=== PATIENT | male | born 1970 | race Caucasian/White ===

== ENCOUNTER 2017-01-11 19:37 | Emergency (ER) | payer SELFPAY ==
[2017-01-11] MEDS ORDERED: ACETAMINOPHEN 500 MG TABLET PO ONE (20:02)
--- NOTE | 2017-01-11 20:04 | Emergency Department Record ---
History of Present Illness - General Chief complaint: Swelling of legs Stated complaint: SWELLING OF LEGS Time Seen by Provider: 01/11/17 19:57 Source: Patient Mode of Arrival: Ambulatory Limitations: No limitations - History of Present Illness Initial comments: 46 yo male presents to ED stating "I think I have cellulitis to the left lower extremity again". Patient reports that his symptoms began this morning with a pain and "pins and needles" sensation to the left LE similar to previous episodes. Patient denies history of DM, but reports 2-3 previous episodes of cellulitis. Patient als reports fatigue and myalagias today as well. MD Complaint: Extremity pain Onset/Timin -: Week(s) Location: Left, Foot History of Same: Yes Radiation: Proximal Severity scale (1-10): 9 Consistency: Getting worse Improves with: Nothing Worsens with: Walking, Weight bearing Associated Symptoms: Fever, Other - Related Data Home Medications Medication Instructions Recorded Confirmed Last Taken Sertraline HCl [Zoloft] 100 mg PO BID 08/16/15 01/11/17 1 Day Ago ~08/15/15 Trazodone HCl 100 mg PO QPM 08/16/15 01/11/17 1 Day Ago ~08/15/15 Previous Rx's Medication Instructions Recorded Clindamycin HCl 300 mg PO QID #40 capsule 01/11/17 Allergies Allergy/AdvReac Type Severity Reaction Status Date / Time Penicillins Allergy HIVES Verified 08/16/15 16:04 Sulfa (Sulfonamide Allergy SWELLING Verified 08/16/15 16:04 Antibiotics) OF THE FACE Travel Screening - Travel/Exposure Within Last 30 Days Have you traveled within the last 30 days?: No - Travel/Exposure Within Last Year Have you traveled outside the [place] in the last year?: No - Additonal Travel Details Have you been exposed to anyone with a communicable illness?: No - Travel Symptoms Symptom Screening: None Review of Systems Constitutional: Reports: Chills, Fever, Malaise, Weakness (generalized). Denies : Night sweats Eyes: Denies: Eye discharge, Eye pain ENT: Denies: Congestion, Ear pain, Epistaxis Respiratory: Denies: Cough, Dyspnea Cardiovascular: Denies: Chest pain, Dyspnea on exertion Endocrine: Denies: Fatigue, Heat or cold intolerance Gastrointestinal: Denies: Abdominal pain, Nausea, Vomiting Genitourinary: Denies: Incontinence, Retention Musculoskeletal: Reports: Arthralgia, Myalgia. Denies: Back pain, Gout, Joint swelling Skin: Denies: Bruising, Change in color Neurological: Denies: Abnormal gait, Confusion, Headache, Seizure Psychiatric: Denies: Anxiety Hematological/Lymphatic: Denies: Anemia, Blood Clots Past Medical History - SOCIAL HISTORY Smoking Status: Never smoker Alcohol Use: None Drug Use: None - RESPIRATORY Hx Bronchitis: Yes Hx Sleep Apnea: Yes (being tested) - CARDIOVASCULAR Hx Cardio Disorders: No - NEURO Hx Neuro Disorders: No - GI Hx GI Disorders: No - Hx Genitourinary Disorders: No - ENDOCRINE Hx Diabetes: No Hx Thyroid Disease: No - PSYCH Hx Anxiety: Yes Hx Depression: Yes - HEMATOLOGY/ONCOLOGY Hx Hematology/Oncology Disorders: No Family Medical History Any Significant Family History?: No Hx HTN: Father, Mother, Brother/Sister, Grandparents Physical Exam - General General Appearance: Alert, Oriented x3, Cooperative, No acute distress Limitations: No limitations - Head Head exam: Atraumatic, Normocephalic, Normal inspection Head exam detail: negative: Abrasion, Contusion, Beaulieu's sign, General tenderness, Hematoma, Laceration - Eye Eye exam: Normal appearance. negative: Conjunctival injection, Periorbital swelling, Periorbital tenderness, Scleral icterus - ENT Ear exam: negative: Auricular hematoma, Auricular trauma Nasal Exam: negative: Active bleeding, Discharge, Dried blood, Foreign body Mouth exam: negative: Drooling, Laceration, Muffled voice, Tongue elevation - Neck Neck exam: Normal inspection. negative: Meningismus, Tenderness - Respiratory Respiratory exam: Normal lung sounds bilaterally. negative: Rales, Respiratory distress, Rhonchi, Stridor - Cardiovascular Cardiovascular Exam: Normal rhythm, Normal heart sounds, Tachycardia - GI/Abdominal GI/Abdominal exam: Soft. negative: Rebound, Rigid, Tenderness - Rectal Rectal exam: Deferred - exam: Deferred - Extremities Extremities exam: Other (warmth to the lower extremities bilaterally, no erythema or crepitation is present on examination). negative: Calf tenderness, Pedal edema, Tenderness - Back Back exam: Denies: CVA tenderness (R), CVA tenderness (L) - Neurological Neurological exam: Alert, Normal gait, Oriented X3 - Psychiatric Psychiatric exam: Normal affect, Normal mood - Skin Skin exam: Normal color. negative: Abrasion Type of lesion: negative: abrasion Course Vital Signs 01/11/17 19:39 Temperature 100.5 F H Pulse Rate 120 H Respiratory 26 H Rate Blood Pressure 119/87 Pulse Ox 93 L - Reevaluation(s) Reevaluation #1: 01/11/17 21:07 Labs reviewed, WBC 19.5 with 88% neutrophils, labs are otherwise grossly unremarkable for an acute process. CXR: No acute process Patient was updated on all results, reports improvement in his symptoms (pulse down to 99 from 120, temp remains at 100.3). Will initiate treatment with Clindamycin followed by outpatient treatment for presumed cellulitis. Patient agrees with plan as discussed. Medical Decision Making - Lab Data Result diagrams: 01/11/17 20:30 01/11/17 20:30 Disposition Disposition: Discharge Clinical Impression: Cellulitis of lower leg Disposition: Home, Self-Care Condition: (2) Stable Instructions: Cellulitis (ED) Additional Instructions: Return to ED if symptoms worsen or if you have any concerns. Clindamycin as directed. Follow-up with your family doctor in 1-3 days as directed. Prescriptions: Clindamycin HCl 300 mg PO QID #40 capsule Forms: Patient Portal Access Time of Disposition: 21:11
[2017-01-11] MEDS ORDERED: 0.9 % SODIUM CHLORIDE 1000ML 1,000 ML IV SCH (20:15)
[2017-01-11 20:35] LABS: BASO % 0.1 % (0-6); EOS % 0.2 % (0-6); HEMATOCRIT 44.3 % (42.0-52.0); HEMOGLOBIN 14.7 gm/dl (14.0-18.0); LYMPH % 2.8 % (16-45); MEAN CELL VOLUME 85.9 fl (81-97); MEAN CORPUSCULAR HEMOGLOBIN 28.5 pg (27-33); MEAN CORPUSCULAR HGB CONC 33.2 g/dl (32-36); MEAN PLATELET VOLUME 8.9 fl (7.4-10.4); MONO % 6.6 % (0-9); PLATELET COUNT 226 K/uL (130-400); RED BLOOD COUNT 5.16 M/uL (4.40-5.70); RED CELL DISTRIBUTION WIDTH 13.6 % (11.5-14.5); WHITE BLOOD COUNT W/O DIFF 19.5 K/uL (4.2-12.2)
[2017-01-11 20:46] LABS: LACTIC ACID 1.1 mmol/L (0.7-2.1)
[2017-01-11 21:00] LABS: BLOOD UREA NITROGEN 12 mg/dL (9-20); CREATININE 0.8 mg/dL (0.66-1.25); EST GLOMERULAR FILTRATION RATE > 60 ml/min; GLUCOSE,RANDOM 104 mg/dL (70-110)
[2017-01-11 21:01] LABS: ALB/GLOB RATIO 1.3 (1.1-1.8); ALBUMIN 4.4 gm/dL (3.5-5.0); ALKALINE PHOSPHATASE 68 U/L (38-126); ALT/SGPT 29 U/L (21-72); AST/SGOT 18 U/L (17-59); TOTAL PROTEIN 7.7 gm/dL (6.3-8.2)
[2017-01-11] MEDS ORDERED: CLINDAMYCIN 900 MG/50 ML IVPB SCH (21:15)
[2017-01-11] MEDS ORDERED: D5W IVPB SCH (21:15)
[2017-01-11] MEDS ORDERED: CLINDAMYCIN 600MG/50ML PREMIX 600 MG/50 ML BAG IVPB ONE (21:23)
== END 2017-01-11 21:50 | disposition home or self-care (01) ==
LOC: ER 19:37
DX: L03.116 Cellulitis of left lower limb (principal)
CPT/HCPCS: 71020; 80053; 83605; 85027; 96374; 99284; J7030

== ENCOUNTER 2017-04-19 19:21 | Emergency (ER) | payer MEDICAID ==
[2017-04-19] MEDS ORDERED: CLINDAMYCIN 600MG/4ML VIAL 600 MG in 0.9 % SODIUM CHLORIDE 100ML 100 ML IV ONE (19:28)
--- NOTE | 2017-04-19 19:34 | Emergency Department Record ---
History of Present Illness - General Chief complaint: Rash Stated complaint: RASH ON RT LEG Time Seen by Provider: 04/19/17 19:27 Source: Patient, Family Mode of Arrival: Ambulatory Limitations: No limitations - History of Present Illness Initial comments: 47 yo male presents with redness to the lower leg on the right that started today. He has had cellulitis 7 times in the past. No fevers or chills. No nausea or vomiting. He has warmth and redness. No pus or signs of abscesses. He is not a diabetic. He reports a good response to Clindamycin in the past. MD complaint: Rash -: Hour(s) Location: RLE Severity: Moderate Quality: Aching Consistency: Constant Improves with: None Worsens with: None Context: Other (Hx of same in the past) Associated symptoms: Denies other symptoms Treatments Prior to Arrival: None - Related Data Previous Rx's Medication Instructions Recorded Clindamycin HCl 300 mg PO QID #28 capsule 04/19/17 Sertraline HCl [Zoloft] 100 mg PO BID #60 tablet 04/19/17 Trazodone HCl 100 mg PO QPM #30 tablet 04/19/17 Allergies Allergy/AdvReac Type Severity Reaction Status Date / Time Penicillins Allergy HIVES Verified 08/16/15 16:04 Sulfa (Sulfonamide Allergy SWELLING Verified 08/16/15 16:04 Antibiotics) OF THE FACE Review of Systems Constitutional: Denies: Chills, Fever, Malaise, Weakness Eyes: Denies: Eye discharge ENT: Denies: Congestion, Throat pain Respiratory: Denies: Cough, Dyspnea, Hemoptysis, Stridor, Wheezes Cardiovascular: Denies: Chest pain, Syncope Endocrine: Denies: Fatigue Gastrointestinal: Denies: Abdominal pain, Diarrhea, Nausea, Vomiting Genitourinary: Denies: Dysuria, Frequency, Hematuria Musculoskeletal: Denies: Arthralgia, Back pain, Joint swelling, Myalgia Skin: Reports: As per HPI, Change in color, Rash Neurological: Denies: Headache, Vertigo, Weakness Psychiatric: Denies: Anxiety Hematological/Lymphatic: Denies: Blood Clots, Easy bleeding, Easy bruising, Swollen glands Past Medical History - SOCIAL HISTORY Smoking Status: Never smoker Drug Use: None - RESPIRATORY Hx Bronchitis: Yes Hx Sleep Apnea: Yes (being tested) - CARDIOVASCULAR Hx Cardio Disorders: No - NEURO Hx Neuro Disorders: No - GI Hx GI Disorders: No - Hx Genitourinary Disorders: No - ENDOCRINE Hx Diabetes: No Hx Thyroid Disease: No - PSYCH Hx Anxiety: Yes Hx Depression: Yes - HEMATOLOGY/ONCOLOGY Hx Hematology/Oncology Disorders: No Family Medical History Hx HTN: Father, Mother, Brother/Sister, Grandparents Physical Exam - General General Appearance: Alert, Oriented x3, Cooperative, No acute distress Limitations: No limitations - Head Head exam: Normal inspection - Eye Eye exam: Normal appearance. negative: Conjunctival injection, Periorbital swelling - ENT ENT exam: Normal exam Ear exam: Normal external inspection Nasal Exam: Normal inspection Mouth exam: Normal external inspection - Neck Neck exam: Normal inspection, Full ROM. negative: Tenderness - Respiratory Respiratory exam: Normal lung sounds bilaterally. negative: Respiratory distress - Cardiovascular Cardiovascular Exam: Regular rate, Normal rhythm, Normal heart sounds Peripheral Pulses: 2+: Radial (R) - Rectal Rectal exam: Deferred - exam: Deferred - Extremities Extremities exam: Full ROM, Normal capillary refill. negative: Normal inspection, Pedal edema, Tenderness Image of Full Body: 1 - erythema, soft, no blisters or abscesses, no weeping or blisters - Back Back exam: Reports: Normal inspection. Denies: CVA tenderness (R), CVA tenderness (L) - Neurological Neurological exam: Alert, Normal gait, Oriented X3, Reflexes normal - Psychiatric Psychiatric exam: Normal affect, Normal mood - Skin Skin exam: Erythema Course - Reevaluation(s) Reevaluation #1: No acute changes on the CBC or BMP DC with 2am and 8am dose of Clindamycin 04/19/17 20:02 Medical Decision Making - Lab Data Result diagrams: 04/19/17 19:35 04/19/17 19:35 Disposition Disposition: Discharge Clinical Impression: Cellulitis Qualifiers: Site of cellulitis: extremity Site of cellulitis of extremity: lower extremity Laterality: right Qualified Code(s): L03.115 - Cellulitis of right lower limb Disposition: Home, Self-Care Condition: (1) Good Instructions: Cellulitis (ED) Additional Instructions: Elevate the leg as much as possible Return if worse, fever, blisters or pus develop Take the Clindamycin every 6 hours Recheck in one day if not improving but sooner if worse Prescriptions: Clindamycin HCl 300 mg PO QID #28 capsule Sertraline HCl [Zoloft] 100 mg PO BID #60 tablet Trazodone HCl 100 mg PO QPM #30 tablet Forms: Patient Portal Access Time of Disposition: 20:02 Quality - Quality Measures Quality Measures: N/A - Blood Pressure Screening Does Patient Have Any of the Following: No Blood Pressure Classification: Hypertensive Reading Systolic Measurement: 140 Diastolic Measurement: 91 Screening for High Blood Pressure: < Pre-Hypertensive BP, F/U Documented > [ G8950] Pre-Hypertensive Follow-up Interventions: Referral to alternative/primary care provider.
[2017-04-19] MEDS ORDERED: CLINDAMYCIN 150 MG CAP PO ONE ×2 (19:40→20:28)
[2017-04-19 19:42] LABS: HEMATOCRIT 43.1 % (42.0-52.0); HEMOGLOBIN 14.9 gm/dl (14.0-18.0); MEAN CELL VOLUME 85.9 fl (81-97); MEAN CORPUSCULAR HEMOGLOBIN 29.7 pg (27-33); MEAN CORPUSCULAR HGB CONC 34.6 g/dl (32-36); PLATELET COUNT 205 K/uL (130-400); RED BLOOD COUNT 5.02 M/uL (4.40-5.70); RED CELL DISTRIBUTION WIDTH 13.6 % (11.5-14.5); WHITE BLOOD COUNT W/O DIFF 11.3 K/uL (4.2-12.2)
[2017-04-19 19:52] LABS: PLATELET ESTIMATE NORMAL (NORMAL)
[2017-04-19 19:53] LABS: ANION GAP 8.4 (7-16); BLOOD UREA NITROGEN 12 mg/dL (9-20); CARBON DIOXIDE 26.6 mmol/L (22-30); CREATININE 0.9 mg/dL (0.66-1.25); EST GLOMERULAR FILTRATION RATE > 60 ml/min; GLUCOSE,RANDOM 82 mg/dL (70-110)
== END 2017-04-19 20:55 | disposition home or self-care (01) ==
LOC: ER 19:21
DX: L03.115 Cellulitis of right lower limb (principal)
CPT/HCPCS: 80048; 85027; 96374; 99284

== ENCOUNTER 2017-06-16 12:24 | Emergency (ER) | payer MEDICAID ==
--- NOTE | 2017-06-16 12:41 | Emergency Department Record ---
History of Present Illness - General Chief Complaint: Back Pain/Injury Stated Complaint: LOW BACK PAIN Time Seen by Provider: 06/16/17 12:33 Source: Patient Mode of Arrival: Ambulatory Limitations: No limitations - History of Present Illness Initial Comments: The patient was lifting a heavy object yesterday and felt a "pop" in his back. He had no problems after but only very mild pain and went to bed with no issues. This AM he has developed significant pain in the low back. The pain is sharp and stabbing and is MUCH worse with any movement or bending. He denies any radiation of the pain down the legs or any leg numbness, tingling, weakness , or any bowel or bladder issues. The patient has had back surgery in the past. He is able to walk with pain. Onset/Timin -: Days(s) Similar Symptoms Previously: No Place: Home Radiation: None Severity: Severe Severity scale (1-10): 10 Quality: Sharp, Other Consistency: Constant Improves With: None Worsens With: None Context: Bending, While lifting Associated Symptoms: Denies other symptoms Treatment Prior to Arrival Comment:: pema @0800 - Related Data Previous Rx's Medication Instructions Recorded Sertraline HCl [Zoloft] 100 mg PO BID #60 tablet 04/19/17 Trazodone HCl 100 mg PO QPM #30 tablet 04/19/17 Naproxen [Naprosyn] 500 mg PO BID #14 tablet. 06/16/17 Orphenadrine Citrate [Norflex] 100 mg PO Q12H PRN #14 tab 06/16/17 Allergies Allergy/AdvReac Type Severity Reaction Status Date / Time cyclobenzaprine Allergy BEHAVIORAL Verified 06/16/17 13:00 [From Flexeril] CHANGES Penicillins Allergy HIVES Verified 08/16/15 16:04 Sulfa (Sulfonamide Allergy SWELLING Verified 08/16/15 16:04 Antibiotics) OF THE FACE Travel Screening - Travel/Exposure Within Last 30 Days Have you traveled within the last 30 days?: No Review of Systems Constitutional: Denies: Chills, Fever Eyes: Denies: Eye discharge ENT: Denies: Congestion Respiratory: Denies: Cough, Dyspnea Past Medical History - SOCIAL HISTORY Smoking Status: Never smoker Alcohol Use: None Drug Use: None - RESPIRATORY Hx Respiratory Disorders: Yes Hx Bronchitis: Yes Hx Sleep Apnea: Yes (being tested) - CARDIOVASCULAR Hx Cardio Disorders: No - NEURO Hx Neuro Disorders: No - GI Hx GI Disorders: No - Hx Genitourinary Disorders: No - ENDOCRINE Hx Diabetes: No Hx Thyroid Disease: No - MUSCULOSKELETAL Hx Musculoskeletal Disorders: Yes - PSYCH Hx Psych Problems: Yes Hx Anxiety: Yes Hx Depression: Yes - HEMATOLOGY/ONCOLOGY Hx Hematology/Oncology Disorders: No Family Medical History Any Significant Family History?: Yes Hx HTN: Father, Mother, Brother/Sister, Grandparents Physical Exam - General General Appearance: Alert, Cooperative, No acute distress - Head Head exam: Atraumatic, Normocephalic, Normal inspection - Eye Eye exam: Normal appearance, PERRL - Neck Neck exam: Normal inspection, Full ROM. negative: Tenderness - Respiratory Respiratory exam: Normal lung sounds bilaterally. negative: Respiratory distress - Cardiovascular Cardiovascular Exam: Regular rate, Normal rhythm, Normal heart sounds - GI/Abdominal GI/Abdominal exam: Soft (obese.), Normal bowel sounds. negative: Tenderness - Extremities Extremities exam: Normal inspection, Full ROM, Normal capillary refill, Other ( Neg SLR bilaterally.). negative: Tenderness Image of Full Body: 1 - Location of the pain. - Back Back exam: Reports: Normal inspection, Muscle spasm, Paraspinal tenderness ( There is significant tenderness to the R L3-5 paraspinal area.). Denies: Vertebral tenderness - Neurological Neurological exam: Alert, Normal gait, Oriented X3, Reflexes normal (The patella and achilles are 2+ and equal bilaterally.). negative: Abnormal gait, Altered, Motor sensory deficit Course Vital Signs 06/16/17 12:27 Temperature 98.4 F Pulse Rate 117 H Respiratory 16 Rate Blood Pressure 118/79 Pulse Ox 95 - Reevaluation(s) Reevaluation #1: The patient is doing much better at this time. He is up walking with very little pain and no leg numbness, weakness, or tingling. He is ready for home. 06/16/17 13:17 Disposition Disposition: Discharge Clinical Impression: Low back strain Qualifiers: Encounter type: initial encounter Qualified Code(s): S39.012A - Strain of muscle, fascia and tendon of lower back, initial encounter Disposition: Home, Self-Care Condition: (2) Stable Instructions: Low Back Strain (ED) Additional Instructions: Please rest with no lifting or bending. Take the Naprosyn and Norflex as directed. Please see your PCP if not better by Monday in 3 days. Return to the ER for any increased pain, leg numbness, weakness, or any bowel or bladder issues. Prescriptions: Naproxen [Naprosyn] 500 mg PO BID #14 tablet. Orphenadrine Citrate [Norflex] 100 mg PO Q12H PRN #14 tab PRN Reason: Analgesia Forms: Patient Portal Access Time of Disposition: 13:20 Quality - Quality Measures Quality Measures: N/A - Blood Pressure Screening View Details: Yes Does Patient Have Any of the Following: No Blood Pressure Classification: Normal BP Reading Systolic Measurement: 116 Diastolic Measurement: 78 Screening for High Blood Pressure: < Normal BP, F/U Not Required > [G8783]
[2017-06-16] MEDS: KETOROLAC 30 MG/ML VIAL IM ONE (12:58)
[2017-06-16] MEDS: ORPHENADRINE CITRATE 60MG/2ML VIAL IM ONE (12:59)
== END 2017-06-16 13:31 | disposition home or self-care (01) ==
LOC: ER 12:24
DX: S39.012A Strain of muscle, fascia and tendon of lower back, initial encounter (principal); X50.0XXA Overexertion from strenuous movement or load, initial encounter; Y92.009 Unspecified place in unspecified non-institutional (private) residence as the place of occurrence of the external cause
CPT/HCPCS: 99283 ×2; 96372; J1885; J2360

== ENCOUNTER 2017-08-19 18:48 | Emergency (ER) | payer MEDICAID ==
--- NOTE | 2017-08-19 19:20 | Emergency Department Record ---
Anxiety - General Chief Complaint: Anxiety Stated Complaint: ANXIETY Time Seen by Provider: 08/19/17 19:03 Source: Patient Mode of Arrival: Ambulatory - History of Present Illness Initial Comments: the patient ran out of his zoloft on Monday08-14-17. He has his first appointment with Dr Rick on September 12 or . and would like a bridge script because he is unable to sleep and he feels uptight. His grandfather on and he had a new grand daughter born the day before. He denies symptoms such as f,c,shrestha, stroke symptoms, cp, marichuy, ap, SOB, URI symptoms. MD Complaint: Anxiety Onset/Timin -: Days(s) Symptoms: Other Place: Home Previous History of Same: No Severity: Moderate Provoking factors: Medication change, Recent /illness of family member Improves With: Nothing Worsens With: Nothing Associated symptoms: Denies other symptoms - Related Data Home Medications: Previous Rx's Medication Instructions Recorded Sertraline HCl [Zoloft] 100 mg PO BID #60 tablet 04/19/17 Trazodone HCl 100 mg PO QPM #30 tablet 04/19/17 Orphenadrine Citrate [Norflex] 100 mg PO Q12H PRN #14 tab 06/16/17 Sertraline HCl [Zoloft] 100 mg PO ASDIR #20 tablet 08/19/17 Allergies/Adverse Reactions: Allergies Allergy/AdvReac Type Severity Reaction Status Date / Time cyclobenzaprine Allergy BEHAVIORAL Verified 06/16/17 13:00 [From Flexeril] CHANGES Penicillins Allergy HIVES Verified 08/16/15 16:04 Sulfa (Sulfonamide Allergy SWELLING Verified 08/16/15 16:04 Antibiotics) OF THE FACE Travel Screening - Travel/Exposure Within Last 30 Days Have you traveled within the last 30 days?: No - Travel/Exposure Within Last Year Have you traveled outside the [place] in the last year?: No - Additonal Travel Details Have you been exposed to anyone with a communicable illness?: No - Travel Symptoms Symptom Screening: None Review of Systems Reviewed: No additional complaints except as noted below Constitutional: Reports: As per HPI. Denies: Chills, Fever, Malaise, Night sweats, Weakness, Weight change Eyes: Reports: As per HPI. Denies: Eye discharge, Eye pain, Photophobia, Vision change ENT: Reports: As per HPI. Denies: Congestion, Dental pain, Ear pain, Epistaxis , Hearing loss, Throat pain Respiratory: Reports: As per HPI. Denies: Cough, Dyspnea, Hemoptysis, Stridor, Wheezes Cardiovascular: Reports: As per HPI. Denies: Arrhythmia, Chest pain, Dyspnea on exertion, Edema, Murmurs, Orthopnea, Palpitations, Paroxysmal nocturnal dyspnea, Rheumatic Fever, Syncope Endocrine: Reports: As per HPI. Denies: Fatigue, Heat or cold intolerance, Polydipsia, Polyuria Gastrointestinal: Reports: As per HPI. Denies: Abdominal pain, Constipation, Diarrhea, Hematemesis, Hematochezia, Melena, Nausea, Vomiting Genitourinary: Reports: As per HPI. Denies: Dysuria, Frequency, Hematuria, Incontinence, Retention, Testicular pain, Testicular mass, Urgency Musculoskeletal: Reports: As per HPI. Denies: Arthralgia, Back pain, Gout, Joint swelling, Myalgia, Neck pain Skin: Reports: As per HPI. Denies: Bruising, Change in color, Change in hair/ nails, Lesions, Pruritus, Rash Neurological: Reports: As per HPI. Denies: Abnormal gait, Confusion, Headache, Numbness, Paresthesias, Seizure, Tingling, Tremors, Vertigo, Weakness Psychiatric: Reports: As per HPI. Denies: Anxiety, Auditory hallucinations, Depression, Homicidal thoughts, Suicidal thoughts, Visual hallucinations Hematological/Lymphatic: Reports: As per HPI. Denies: Anemia, Blood Clots, Easy bleeding, Easy bruising, Swollen glands Past Medical History - SOCIAL HISTORY Smoking Status: Never smoker Alcohol Use: None Drug Use: None - RESPIRATORY Hx Respiratory Disorders: Yes Hx Bronchitis: Yes Hx Sleep Apnea: Yes (being tested) - CARDIOVASCULAR Hx Cardio Disorders: No - NEURO Hx Neuro Disorders: No - GI Hx GI Disorders: No - Hx Genitourinary Disorders: No - ENDOCRINE Hx Diabetes: No Hx Thyroid Disease: No - MUSCULOSKELETAL Hx Musculoskeletal Disorders: Yes - PSYCH Hx Psych Problems: Yes Hx Anxiety: Yes Hx Depression: Yes - HEMATOLOGY/ONCOLOGY Hx Hematology/Oncology Disorders: No Family Medical History Any Significant Family History?: Yes Hx HTN: Father, Mother, Brother/Sister, Grandparents Physical Exam - General General Appearance: Alert, Oriented x3, Cooperative, No acute distress, Anxious (mildly) - Head Head exam: Normal inspection - Eye Eye exam: Normal appearance, PERRL Pupils: Normal accommodation - ENT ENT exam: Normal exam, Mucous membranes moist, Normal external ear exam, Normal orophraynx, TM's normal bilaterally Ear exam: Normal external inspection. negative: External canal tenderness Nasal Exam: Normal inspection. negative: Discharge, Sinus tenderness Mouth exam: Normal external inspection, Tongue normal Teeth exam: Normal inspection. negative: Dental caries Throat exam: Normal inspection. negative: Tonsillar erythema, Tonsillar exudate - Neck Neck exam: Normal inspection, Full ROM. negative: Tenderness - Respiratory Respiratory exam: Normal lung sounds bilaterally. negative: Respiratory distress - Cardiovascular Cardiovascular Exam: Regular rate, Normal rhythm, Normal heart sounds - GI/Abdominal GI/Abdominal exam: Soft, Normal bowel sounds. negative: Tenderness - Rectal Rectal exam: Deferred - exam: Deferred - Extremities Extremities exam: Normal inspection, Full ROM, Normal capillary refill. negative: Calf tenderness, Pedal edema, Tenderness - Back Back exam: Reports: Normal inspection, Full ROM. Denies: CVA tenderness (R), CVA tenderness (L), Muscle spasm, Rash noted, Tenderness - Neurological Neurological exam: Alert, CN II-XII intact, Normal gait, Oriented X3, Reflexes normal. negative: Motor sensory deficit - Psychiatric Psychiatric exam: Normal affect, Normal mood - Skin Skin exam: Dry, Intact, Normal color, Warm Course Vital Signs 08/19/17 19:02 Temperature 98 F Pulse Rate 87 Respiratory 20 Rate Blood Pressure 192/116 Pulse Ox 97 Medical Decision Making - Management Options MDM Management: No Additional Work-up Planned Disposition Disposition: Discharge Clinical Impression: Medication refill, Anxiety Disposition: Home, Self-Care Condition: (1) Good Instructions: Social Anxiety Disorder (ED) Additional Instructions: Fill script of zoloft and begin with half a tab daily for 2 days, then increase to one tab per day for until you have your appointment with Dr. Rick. Take the ativan pill when you get home by 10 p.m. tonight to help with sleep/ anxiety. Keep your appointment with Dr. Rick without fail to establish you PCP care. Your BP was high this visit, follow this with your PCP Prescriptions: Sertraline HCl [Zoloft] 100 mg PO ASDIR #20 tablet Quality - Quality Measures Quality Measures: N/A - Blood Pressure Screening Does Patient Have Any of the Following: No Blood Pressure Classification: Hypertensive Reading Systolic Measurement: 192 Diastolic Measurement: 116 Screening for High Blood Pressure: < First Hypertensive BP, F/U Documented > [ G8950] First Hypertensive Follow-up Interventions: Follow-up with rescreen GT 1 day and LT 4 weeks.
[2017-08-19] MEDS ORDERED: LORAZEPAM 0.5 MG TABLET PO ONE (19:32)
== END 2017-08-19 19:44 | disposition home or self-care (01) ==
LOC: ER 18:48
DX: F41.9 Anxiety disorder, unspecified (principal); Z76.0 Encounter for issue of repeat prescription
CPT/HCPCS: 99282

== ENCOUNTER 2017-10-16 21:53 | Emergency (ER) | payer MEDICAID ==
[2017-10-16] MEDS ORDERED: CLINDAMYCIN 600MG/50ML PREMIX 600 MG/50 ML BAG IVPB ONE (22:07)
--- NOTE | 2017-10-16 22:08 | Emergency Department Record ---
History of Present Illness - General Chief complaint: Extremity Problem Stated complaint: SWELLING IN LEGS Time Seen by Provider: 10/16/17 21:58 Source: Patient Mode of Arrival: Ambulatory Limitations: No limitations - History of Present Illness Initial comments: 47 yo male presents to ED for evaluation of bilateral LE edema and associated with a "pins and needles" sensation. Patient reports 3-4 similar episodes previously that have resulted in cellulitis, reports associated symptoms of subjective fever and nausea similar to previous episodes as well. Patient denies history of DVT, and denies history of CHF as well. MD Complaint: Extremity pain Onset/Timin -: Days(s) Location: Bilateral History of Same: Yes -: Yes Fever, Yes Myalgia Quality: Aching Consistency: Constant Improves with: Nothing Worsens with: Nothing Associated Symptoms: Fever - Related Data Previous Rx's Medication Instructions Recorded Sertraline HCl [Zoloft] 100 mg PO BID #60 tablet 04/19/17 Trazodone HCl 100 mg PO QPM #30 tablet 04/19/17 Clindamycin HCl [Cleocin HCl] 300 mg PO QID #28 capsule 10/16/17 Allergies Allergy/AdvReac Type Severity Reaction Status Date / Time cyclobenzaprine Allergy BEHAVIORAL Verified 06/16/17 13:00 [From Flexeril] CHANGES Penicillins Allergy HIVES Verified 08/16/15 16:04 Sulfa (Sulfonamide Allergy SWELLING Verified 08/16/15 16:04 Antibiotics) OF THE FACE Review of Systems Constitutional: Reports: Fever, Malaise. Denies: Chills, Night sweats Eyes: Denies: Eye discharge, Eye pain ENT: Denies: Congestion, Ear pain, Epistaxis Respiratory: Denies: Cough, Dyspnea Cardiovascular: Denies: Chest pain, Dyspnea on exertion Endocrine: Denies: Fatigue, Heat or cold intolerance Gastrointestinal: Reports: Nausea. Denies: Abdominal pain, Vomiting Genitourinary: Denies: Incontinence, Retention Musculoskeletal: Denies: Arthralgia, Back pain, Gout, Joint swelling Skin: Denies: Bruising, Change in color, Change in hair/nails Neurological: Denies: Abnormal gait, Confusion, Headache, Seizure Psychiatric: Denies: Anxiety Hematological/Lymphatic: Denies: Anemia, Blood Clots Past Medical History - SOCIAL HISTORY Smoking Status: Never smoker Drug Use: None - RESPIRATORY Hx Respiratory Disorders: Yes Hx Bronchitis: Yes Hx Sleep Apnea: Yes (being tested) - CARDIOVASCULAR Hx Cardio Disorders: No - NEURO Hx Neuro Disorders: No - GI Hx GI Disorders: No - Hx Genitourinary Disorders: No - ENDOCRINE Hx Diabetes: No Hx Thyroid Disease: No - MUSCULOSKELETAL Hx Musculoskeletal Disorders: Yes - PSYCH Hx Psych Problems: Yes Hx Anxiety: Yes Hx Depression: Yes - HEMATOLOGY/ONCOLOGY Hx Hematology/Oncology Disorders: No Family Medical History Hx HTN: Father, Mother, Brother/Sister, Grandparents Physical Exam - General General Appearance: Alert, Oriented x3, Cooperative, Mild distress Limitations: No limitations - Head Head exam: Atraumatic, Normocephalic, Normal inspection Head exam detail: negative: Abrasion, Contusion, Beaulieu's sign, General tenderness, Hematoma, Laceration - Eye Eye exam: Normal appearance. negative: Conjunctival injection, Periorbital swelling, Periorbital tenderness, Scleral icterus - ENT Ear exam: negative: Auricular hematoma, Auricular trauma Nasal Exam: negative: Active bleeding, Discharge, Dried blood, Foreign body Mouth exam: negative: Drooling, Laceration, Muffled voice, Tongue elevation - Neck Neck exam: Normal inspection. negative: Meningismus, Tenderness - Respiratory Respiratory exam: Normal lung sounds bilaterally. negative: Rales, Respiratory distress, Rhonchi, Stridor - Cardiovascular Cardiovascular Exam: Regular rate, Normal rhythm, Normal heart sounds - GI/Abdominal GI/Abdominal exam: Soft. negative: Rebound, Rigid, Tenderness - Rectal Rectal exam: Deferred - exam: Deferred - Extremities Extremities exam: Pedal edema (1+ edema bilaterally, no erythema or warmth present on examination). negative: Calf tenderness, Joint swelling, Tenderness - Back Back exam: Denies: CVA tenderness (R), CVA tenderness (L) - Neurological Neurological exam: Alert, Normal gait, Oriented X3 - Psychiatric Psychiatric exam: Normal affect, Normal mood - Skin Skin exam: Normal color. negative: Abrasion Type of lesion: negative: abrasion Course Vital Signs 10/16/17 21:59 Temperature 99.3 F Pulse Rate [ 97 H Pulse Ox Probe] Respiratory 20 Rate Blood Pressure 160/106 [Left Arm] Pulse Ox 95 - Reevaluation(s) Reevaluation #1: 10/16/17 22:41 Labs reviewed, WBC 12.7, labs are otherwise grossly unremarkable for an acute process. Patient was updated on all results, and I have no clinical suspicion for DVT based on the patient's history of previous symptoms and previous negative dopplers with no previous DVT history. Patient appears stable for discharge at this time. Medical Decision Making - Lab Data Result diagrams: 10/16/17 22:15 10/16/17 22:15 Disposition Disposition: Discharge Clinical Impression: Cellulitis of lower extremity Qualifiers: Laterality: unspecified laterality Qualified Code(s): L03.119 - Cellulitis of unspecified part of limb Disposition: Home, Self-Care Condition: (2) Stable Instructions: Cellulitis (ED) Additional Instructions: Return to ED if your symptoms worsen or if you have any concerns. Clindamycin as directed. Follow-up with your family doctor in 3-5 days as directed. Prescriptions: Clindamycin HCl [Cleocin HCl] 300 mg PO QID #28 capsule Forms: Patient Portal Access Time of Disposition: 22:44 Quality - Quality Measures Quality Measures: N/A - Blood Pressure Screening Does Patient Have Any of the Following: Active Dx of HTN Blood Pressure Classification: Hypertensive Reading Systolic Measurement: 160 Diastolic Measurement: 106 Screening for High Blood Pressure: Patient Exclusion, Hx of HTN [G9744]
[2017-10-16 22:25] LABS: BASO % 0.2 % (0-6); GRAN % 73.4 % (47-80); HEMATOCRIT 44.5 % (42.0-52.0); HEMOGLOBIN 15.4 gm/dl (14.0-18.0); LYMPH % 14.5 % (16-45); MEAN CELL VOLUME 84.9 fl (81-97); MEAN CORPUSCULAR HEMOGLOBIN 29.4 pg (27-33); MEAN CORPUSCULAR HGB CONC 34.6 g/dl (32-36); MEAN PLATELET VOLUME 8.7 fl (7.4-10.4); MONO % 10.9 % (0-9); PLATELET COUNT 244 K/uL (130-400); RED BLOOD COUNT 5.24 M/uL (4.40-5.70); RED CELL DISTRIBUTION WIDTH 13.6 % (11.5-14.5); WHITE BLOOD COUNT W/O DIFF 12.7 K/uL (4.2-12.2)
[2017-10-16 22:33] LABS: BLOOD UREA NITROGEN 10 mg/dL (6-20); CREATININE 0.7 mg/dL (0.7-1.2); EST GLOMERULAR FILTRATION RATE > 60 mL/min
[2017-10-16 22:34] LABS: TOTAL PROTEIN 7.2 g/dL (6.6-8.7)
[2017-10-16 22:36] LABS: GLUCOSE,RANDOM 95 mg/dL (74-109)
[2017-10-16 22:38] LABS: ALB/GLOB RATIO 1.6 (1.1-1.8); ALBUMIN 4.4 g/dL (4.0-5.0); ALT/SGPT 20 U/L (<41); AST/SGOT 16 U/L (10.0-50.0)
[2017-10-16 22:39] LABS: ALKALINE PHOSPHATASE 60 U/L (40-129)
== END 2017-10-16 22:55 | disposition home or self-care (01) ==
LOC: ER 21:53
DX: L03.116 Cellulitis of left lower limb (principal); L03.115 Cellulitis of right lower limb
CPT/HCPCS: 80053; 85025; 96365; 99284

== ENCOUNTER 2018-01-02 19:52 | Emergency (ER) | payer MEDICAID ==
[2018-01-02] MEDS ORDERED: CLINDAMYCIN 600MG/50ML PREMIX 600 MG/50 ML BAG IVPB ONE (20:48)
[2018-01-02] MEDS ORDERED: KETOROLAC 30 MG/ML VIAL IVP ONE (20:49)
[2018-01-02] MEDS ORDERED: HYDROCODONE/APAP 10/325 TABLET PO ONE (20:49)
--- NOTE | 2018-01-02 20:58 | Emergency Department Record ---
History of Present Illness - General Chief complaint: Extremity Problem Stated complaint: RT LOWER LEG CELLULITIS Time Seen by Provider: 01/02/18 20:52 Source: Patient Mode of Arrival: Ambulatory Limitations: No limitations - History of Present Illness Initial comments: 47 yo male presents to ED for evaluation of right lower extremity pain and redness that began this morning, reports numerous episodes of cellulitis to the lower extremity previously (approximately 10 times). Patient reports associated nausea and headache symptoms which have been present with previous episodes of cellulitis as well. Patient reports several previous lower extremity doppler examination, all which have been negative previously. Patient denies history of HTN/DM. MD Complaint: Extremity pain Onset/Timin -: Days(s) Location: Right History of Same: Yes -: Yes Myalgia Radiation: Distal Quality: Aching Consistency: Constant Improves with: Nothing Worsens with: Nothing Associated Symptoms: Rash - Related Data Previous Rx's Medication Instructions Recorded Clindamycin HCl [Cleocin HCl] 300 mg PO QID #40 capsule 01/02/18 Hydrocodone/APAP 5/325Mg [[place] 1 each PO Q6H #5 tab 01/02/18 5Mg/325Mg] Allergies Allergy/AdvReac Type Severity Reaction Status Date / Time cyclobenzaprine Allergy BEHAVIORAL Verified 06/16/17 13:00 [From Flexeril] CHANGES Penicillins Allergy HIVES Verified 08/16/15 16:04 Sulfa (Sulfonamide Allergy SWELLING Verified 08/16/15 16:04 Antibiotics) OF THE FACE Review of Systems Constitutional: Reports: Malaise. Denies: Chills, Fever, Night sweats Eyes: Denies: Eye discharge, Eye pain ENT: Denies: Congestion, Ear pain Respiratory: Denies: Cough, Dyspnea Cardiovascular: Denies: Chest pain, Dyspnea on exertion Endocrine: Denies: Fatigue, Heat or cold intolerance Gastrointestinal: Denies: Abdominal pain, Nausea, Vomiting Genitourinary: Denies: Incontinence, Retention Musculoskeletal: Reports: Myalgia. Denies: Arthralgia, Back pain, Gout, Joint swelling Skin: Reports: Change in color, Rash. Denies: Bruising Neurological: Reports: Headache. Denies: Abnormal gait, Confusion, Seizure Psychiatric: Denies: Anxiety Hematological/Lymphatic: Denies: Anemia, Blood Clots Past Medical History - SOCIAL HISTORY Smoking Status: Never smoker Drug Use: None - RESPIRATORY Hx Respiratory Disorders: Yes Hx Bronchitis: Yes Hx Sleep Apnea: Yes (being tested) - CARDIOVASCULAR Hx Cardio Disorders: No - NEURO Hx Neuro Disorders: No - GI Hx GI Disorders: No - Hx Genitourinary Disorders: No - ENDOCRINE Hx Diabetes: No Hx Thyroid Disease: No - MUSCULOSKELETAL Hx Musculoskeletal Disorders: Yes - PSYCH Hx Psych Problems: Yes Hx Anxiety: Yes Hx Depression: Yes - HEMATOLOGY/ONCOLOGY Hx Hematology/Oncology Disorders: No Family Medical History Hx HTN: Father, Mother, Brother/Sister, Grandparents Physical Exam - General General Appearance: Alert, Oriented x3, Cooperative, Mild distress Limitations: No limitations - Head Head exam: Atraumatic, Normocephalic, Normal inspection Head exam detail: negative: Abrasion, Contusion, Beaulieu's sign, General tenderness, Hematoma, Laceration - Eye Eye exam: Normal appearance. negative: Conjunctival injection, Periorbital swelling, Periorbital tenderness, Scleral icterus - ENT Ear exam: negative: Auricular hematoma, Auricular trauma Nasal Exam: negative: Active bleeding, Discharge, Dried blood, Foreign body Mouth exam: negative: Drooling, Laceration, Muffled voice, Tongue elevation - Neck Neck exam: Normal inspection. negative: Meningismus, Tenderness - Respiratory Respiratory exam: Normal lung sounds bilaterally. negative: Rales, Respiratory distress, Rhonchi, Stridor - Cardiovascular Cardiovascular Exam: Regular rate, Normal rhythm, Normal heart sounds - GI/Abdominal GI/Abdominal exam: Soft. negative: Rebound, Rigid, Tenderness - Rectal Rectal exam: Deferred - exam: Deferred - Extremities Extremities exam: Tenderness, Other (Erythema to the RLE. warm to palpation. No associated lower extermity edema is present.). negative: Calf tenderness, Pedal edema - Back Back exam: Denies: CVA tenderness (R), CVA tenderness (L) - Neurological Neurological exam: Alert, Normal gait, Oriented X3 - Psychiatric Psychiatric exam: Normal affect, Normal mood - Skin Skin exam: Erythema, Rash. negative: Abrasion Type of lesion: negative: abrasion Distribution of rash: RLE Description of rash: Confluent, Erythematous Course - Reevaluation(s) Reevaluation #1: 01/02/18 21:25 Labs reviewed, WBC 16.5 (90% neutrophils), labs are otherwise grossly unremarkable for an acute process. Area of cellulitis was marked, patient was instructed to return to ED if symptoms fail to improve in 48 hours. Patient appears stable for treatment of cellulitis as an outpatient. Medical Decision Making - Lab Data Result diagrams: 01/02/18 20:58 01/02/18 20:58 Disposition Disposition: Discharge Clinical Impression: Cellulitis of right lower extremity Disposition: Home, Self-Care Condition: (2) Stable Instructions: Cellulitis (ED) Additional Instructions: Return to ED if your symptoms worsen or if you have any concerns. Clindamycin as directed. Follow-up with your family doctor in 3-5 days as directed. Prescriptions: Clindamycin HCl [Cleocin HCl] 300 mg PO QID #40 capsule Hydrocodone/APAP 5/325Mg [[place] 5Mg/325Mg] 1 each PO Q6H #5 tab Forms: Patient Portal Access Time of Disposition: 21:26 Quality - Quality Measures Quality Measures: N/A - Blood Pressure Screening Does Patient Have Any of the Following: No Blood Pressure Classification: Pre-Hypertensive BP Reading Systolic Measurement: 134 Diastolic Measurement: 79 Screening for High Blood Pressure: < Pre-Hypertensive BP, F/U Documented > [ G8950] Pre-Hypertensive Follow-up Interventions: Referral to alternative/primary care provider.
[2018-01-02 21:04] LABS: BASO % 0.1 % (0-6); EOS % 0.1 % (0-6); HEMATOCRIT 44.8 % (42.0-52.0); HEMOGLOBIN 15.5 gm/dl (14.0-18.0); LYMPH % 3.9 % (16-45); MEAN CELL VOLUME 86.5 fl (81-97); MEAN CORPUSCULAR HEMOGLOBIN 29.9 pg (27-33); MEAN CORPUSCULAR HGB CONC 34.6 g/dl (32-36); MEAN PLATELET VOLUME 8.9 fl (7.4-10.4); MONO % 6.3 % (0-9); PLATELET COUNT 239 K/uL (130-400); RED BLOOD COUNT 5.18 M/uL (4.40-5.70); RED CELL DISTRIBUTION WIDTH 13.6 % (11.5-14.5); WHITE BLOOD COUNT W/O DIFF 16.5 K/uL (4.2-12.2)
[2018-01-02 21:17] LABS: BLOOD UREA NITROGEN 10 mg/dL (6-20); CREATININE 0.8 mg/dL (0.7-1.2); EST GLOMERULAR FILTRATION RATE > 60 mL/min
[2018-01-02 21:18] LABS: TOTAL PROTEIN 7.5 g/dL (6.6-8.7)
[2018-01-02 21:20] LABS: GLUCOSE,RANDOM 112 mg/dL (74-109)
[2018-01-02 21:22] LABS: ALB/GLOB RATIO 1.3 (1.1-1.8); ALBUMIN 4.2 g/dL (4.0-5.0); ALT/SGPT 21 U/L (<41); AST/SGOT 15 U/L (10.0-50.0)
[2018-01-02 21:23] LABS: ALKALINE PHOSPHATASE 63 U/L (40-129)
== END 2018-01-02 21:46 | disposition home or self-care (01) ==
LOC: ER 19:52
DX: L03.115 Cellulitis of right lower limb (principal)
CPT/HCPCS: 80053; 85027; 96365; 96375; 99284; J1885

== ENCOUNTER 2018-02-24 20:44 | Emergency (ER) | payer MEDICAID ==
[2018-02-24 21:15] LABS: HEMATOCRIT 43.5 % (42.0-52.0); HEMOGLOBIN 14.7 gm/dl (14.0-18.0); MEAN CELL VOLUME 86.5 fl (81-97); MEAN CORPUSCULAR HEMOGLOBIN 29.2 pg (27-33); MEAN CORPUSCULAR HGB CONC 33.8 g/dl (32-36); MEAN PLATELET VOLUME 8.8 fl (7.4-10.4); PLATELET COUNT 234 K/uL (130-400); RED BLOOD COUNT 5.03 M/uL (4.40-5.70); RED CELL DISTRIBUTION WIDTH 13.4 % (11.5-14.5)
[2018-02-24 21:29] LABS: GLUCOSE,RANDOM 90 mg/dL (74-109)
[2018-02-24 21:39] LABS: BLOOD UREA NITROGEN 13 mg/dL (6-20); CREATININE 0.7 mg/dL (0.7-1.2); EST GLOMERULAR FILTRATION RATE > 60 mL/min
[2018-02-24] MEDS ORDERED: CLINDAMYCIN 150 MG CAP PO ONE (22:24)
[2018-02-24] MEDS ORDERED: HYDROCODONE/APAP 5/325MG TABLET PO ONE (22:24)
--- NOTE | 2018-02-24 22:27 | Emergency Department Record ---
History of Present Illness - General Chief complaint: Lower Extremity Pain Stated complaint: INFECTION ON RT LEG Time Seen by Provider: 02/24/18 21:40 Source: Patient Mode of Arrival: Ambulatory Limitations: No limitations - History of Present Illness Initial comments: pt has pain in foot typical to when he starts getting cellulitis like he's had 10 times before. MD Complaint: Extremity pain, Extremity swelling Onset/Timin -: Days(s) Location: Right, Foot History of Same: Yes Severity scale (1-10): 8 Quality: Aching Consistency: Constant, Getting worse Improves with: Nothing Worsens with: Palpation, Weight bearing Associated Symptoms: Denies other symptoms - Related Data Previous Rx's Medication Instructions Recorded Clindamycin HCl 300 mg PO QID #40 capsule 02/24/18 Hydrocodone/Acetaminophen [[place] 1 each PO Q6HR #7 tablet 02/24/18 5-325 Tablet] Allergies Allergy/AdvReac Type Severity Reaction Status Date / Time cyclobenzaprine Allergy BEHAVIORAL Verified 06/16/17 13:00 [From Flexeril] CHANGES Penicillins Allergy HIVES Verified 08/16/15 16:04 Sulfa (Sulfonamide Allergy SWELLING Verified 08/16/15 16:04 Antibiotics) OF THE FACE Travel Screening - Travel/Exposure Within Last 30 Days Have you traveled within the last 30 days?: No Review of Systems Reviewed: No additional complaints except as noted below Constitutional: Reports: As per HPI. Denies: Chills, Fever, Malaise, Night sweats, Weakness, Weight change Eyes: Reports: As per HPI. Denies: Eye discharge, Eye pain, Photophobia, Vision change ENT: Reports: As per HPI. Denies: Congestion, Dental pain, Ear pain, Epistaxis , Hearing loss, Throat pain Respiratory: Reports: As per HPI. Denies: Cough, Dyspnea, Hemoptysis, Stridor, Wheezes Cardiovascular: Reports: As per HPI. Denies: Arrhythmia, Chest pain, Dyspnea on exertion, Edema, Murmurs, Orthopnea, Palpitations, Paroxysmal nocturnal dyspnea, Rheumatic Fever, Syncope Endocrine: Reports: As per HPI. Denies: Fatigue, Heat or cold intolerance, Polydipsia, Polyuria Gastrointestinal: Reports: As per HPI. Denies: Abdominal pain, Constipation, Diarrhea, Hematemesis, Hematochezia, Melena, Nausea, Vomiting Genitourinary: Reports: As per HPI. Denies: Dysuria, Frequency, Hematuria, Incontinence, Retention, Testicular pain, Testicular mass, Urgency Musculoskeletal: Reports: As per HPI. Denies: Arthralgia, Back pain, Gout, Joint swelling, Myalgia, Neck pain Skin: Reports: As per HPI. Denies: Bruising, Change in color, Change in hair/ nails, Lesions, Pruritus, Rash Neurological: Reports: As per HPI. Denies: Abnormal gait, Confusion, Headache, Numbness, Paresthesias, Seizure, Tingling, Tremors, Vertigo, Weakness Psychiatric: Reports: As per HPI. Denies: Anxiety, Auditory hallucinations, Depression, Homicidal thoughts, Suicidal thoughts, Visual hallucinations Hematological/Lymphatic: Reports: As per HPI. Denies: Anemia, Blood Clots, Easy bleeding, Easy bruising, Swollen glands Past Medical History - SOCIAL HISTORY Smoking Status: Never smoker Alcohol Use: None Drug Use: None - RESPIRATORY Hx Respiratory Disorders: Yes Hx Bronchitis: Yes Hx Sleep Apnea: Yes (being tested) - CARDIOVASCULAR Hx Cardio Disorders: No - NEURO Hx Neuro Disorders: No - GI Hx GI Disorders: No - Hx Genitourinary Disorders: No - ENDOCRINE Hx Diabetes: No Hx Thyroid Disease: No - MUSCULOSKELETAL Hx Musculoskeletal Disorders: Yes - PSYCH Hx Psych Problems: Yes Hx Anxiety: Yes Hx Depression: Yes - HEMATOLOGY/ONCOLOGY Hx Hematology/Oncology Disorders: No Family Medical History Any Significant Family History?: Yes Hx HTN: Father, Mother, Brother/Sister, Grandparents Physical Exam - General General Appearance: Alert, Oriented x3, Cooperative, Mild distress - Head Head exam: Normal inspection - Eye Eye exam: Normal appearance, PERRL, EOMI Pupils: Normal accommodation - ENT ENT exam: Normal exam, Mucous membranes moist, Normal external ear exam, Normal orophraynx Ear exam: Normal external inspection. negative: External canal tenderness Nasal Exam: Normal inspection. negative: Discharge, Sinus tenderness Mouth exam: Normal external inspection, Tongue normal Teeth exam: Normal inspection. negative: Dental caries Throat exam: Normal inspection. negative: Tonsillar erythema, Tonsillar exudate - Neck Neck exam: Normal inspection, Full ROM. negative: Tenderness - Respiratory Respiratory exam: Normal lung sounds bilaterally. negative: Respiratory distress - Cardiovascular Cardiovascular Exam: Regular rate, Normal rhythm, Normal heart sounds - GI/Abdominal GI/Abdominal exam: Soft, Normal bowel sounds. negative: Tenderness - Rectal Rectal exam: Deferred - exam: Deferred - Extremities Extremities exam: Normal inspection, Full ROM, Normal capillary refill, Tenderness Image of Feet: 1 - tender w erythema - Back Back exam: Reports: Normal inspection, Full ROM. Denies: Muscle spasm, Rash noted, Tenderness - Neurological Neurological exam: Alert, CN II-XII intact, Normal gait, Oriented X3 - Psychiatric Psychiatric exam: Normal affect, Normal mood - Skin Skin exam: Dry, Intact, Normal color, Warm Course Vital Signs 02/24/18 20:53 Temperature 98.1 F Pulse Rate [ 67 Pulse Ox Probe] Respiratory 14 Rate Blood Pressure 177/115 [Left Arm] Pulse Ox 97 Medical Decision Making - Lab Data Result diagrams: 02/24/18 21:05 02/24/18 21:05 Lab Results 02/24/18 02/24/18 Range/Units 21:05 21:05 WBC 6.0 (4.2-12.2) K/uL RBC 5.03 (4.40-5.70) M/uL Hgb 14.7 (14.0-18.0) gm/dl Hct 43.5 (42.0-52.0) % MCV 86.5 (81-97) fl MCH 29.2 (27-33) pg MCHC 33.8 (32-36) g/dl RDW 13.4 (11.5-14.5) % Plt Count 234 (130-400) K/uL MPV 8.8 (7.4-10.4) fl Neutrophils % 55.0 (47-80) % Band Neutrophils % 3.0 (0-5) % Eosinophils % Not Reportable Basophils % Not Reportable Lymphocytes 29.0 (16-45) % Monocytes 10.0 H (0-9) % Eosinophil Count 3.0 (0-6) % Sodium 140 (136-145) mmol/L Potassium 4.1 (3.4-4.5) mmol/L Chloride 103 (98-107) mmol/L Carbon Dioxide 25.0 (22-29) mmol/L Anion Gap 12.0 (7-16) BUN 13 (6-20) mg/dL Creatinine 0.7 (0.7-1.2) mg/dL Estimated GFR > 60 mL/min Random Glucose 90 (74-109) mg/dL Calcium 9.0 (8.6-10.0) mg/dL Disposition Disposition: Discharge Clinical Impression: Cellulitis Qualifiers: Site of cellulitis: extremity Site of cellulitis of extremity: lower extremity Laterality: right Qualified Code(s): L03.115 - Cellulitis of right lower limb Disposition: Home, Self-Care Condition: (1) Good Instructions: Cellulitis (ED) Additional Instructions: follow up with family doctor. return sooner if worse. elevate foot. warm soaks Prescriptions: Hydrocodone/Acetaminophen [[place] 5-325 Tablet] 1 each PO Q6HR #7 tablet Clindamycin HCl 300 mg PO QID #40 capsule Quality - Quality Measures Quality Measures: N/A - Blood Pressure Screening Does Patient Have Any of the Following: No Blood Pressure Classification: Hypertensive Reading Systolic Measurement: 177 Diastolic Measurement: 115 Screening for High Blood Pressure: < First Hypertensive BP, F/U Documented > [ G8950] First Hypertensive Follow-up Interventions: Follow-up with rescreen GT 1 day and LT 4 weeks.
--- NOTE | 2018-02-25 12:36 | RADIOLOGY REPORT ---
EXAM: FOOT, RIGHT 3 VIEWS HISTORY: PAIN NEAR HEEL OF RIGHT FOOT. CELLULITIS HISTORY. TECHNIQUE: Three views of the right foot.. COMPARISON: None. ENCOUNTER: Initial. FINDINGS: There is borderline osteopenia. No acute fracture, dislocation, or destructive bone lesion is seen. There are mild degenerative changes scattered throughout the foot, most pronounced in the first MTP joint. No periarticular erosion is seen. There is mild spurring at the Achilles tendon insertion on the posterior calcaneus. No suspicious focal soft tissue abnormality. IMPRESSION: 1. NO ACUTE BONE NOR JOINT ABNORMALITY. 2. MILD OSTEOARTHRITIC CHANGES SCATTERED THROUGHOUT THE FOOT. MILD SPURRING AT THE ACHILLES TENDON INSERTION ON THE POSTERIOR CALCANEUS. JOB NUMBER: [id number] MTDD
== END 2018-02-24 22:40 | disposition home or self-care (01) ==
LOC: ER 20:44
DX: L03.115 Cellulitis of right lower limb (principal)
CPT/HCPCS: 80048; 85027; 99283; 99284

== ENCOUNTER 2018-03-01 18:34 | Emergency (ER) | payer MEDICAID ==
[2018-03-01] MEDS ORDERED: LEVOFLOXACIN/D5W 750 MG/150 ML BAG IVPB ONE (19:05)
[2018-03-01 19:15] LABS: BASO % 0.1 % (0-6); EOS % 0.9 % (0-6); GRAN % 71.9 % (47-80); HEMATOCRIT 41.6 % (42.0-52.0); HEMOGLOBIN 14.2 gm/dl (14.0-18.0); LYMPH % 17.3 % (16-45); MEAN CELL VOLUME 87.2 fl (81-97); MEAN CORPUSCULAR HEMOGLOBIN 29.8 pg (27-33); MEAN CORPUSCULAR HGB CONC 34.1 g/dl (32-36); MONO % 9.8 % (0-9); PLATELET COUNT 228 K/uL (130-400); RED BLOOD COUNT 4.77 M/uL (4.40-5.70); RED CELL DISTRIBUTION WIDTH 13.8 % (11.5-14.5); WHITE BLOOD COUNT W/O DIFF 7.7 K/uL (4.2-12.2)
[2018-03-01 19:22] LABS: BLOOD UREA NITROGEN 13 mg/dL (6-20); CREATININE 0.7 mg/dL (0.7-1.2); EST GLOMERULAR FILTRATION RATE > 60 mL/min
[2018-03-01 19:25] LABS: GLUCOSE,RANDOM 102 mg/dL (74-109)
--- NOTE | 2018-03-01 19:25 | Emergency Department Record ---
History of Present Illness - General Chief complaint: Lower Extremity Pain Stated complaint: CELULITIS Time Seen by Provider: 03/01/18 18:56 Source: Patient Mode of Arrival: Ambulatory Limitations: No limitations - History of Present Illness Initial comments: pt here for worsening cellulitis. he was here 3 days ago for cellulitis in its very early stages. he was started on clindamycin. he has frequent bouts of cellulitis and it is always cured with clindamycin. however this time it suddenly got much worse w fever, chills , spreading erythema, tenderness. he states he has been taking clinda as rxd. MD Complaint: Extremity pain, Extremity swelling Onset/Timin -: Days(s) Location: Left, Lower Leg History of Same: Yes Radiation: Distal Severity scale (1-10): 6 Quality: Burning, Sharp Consistency: Constant Improves with: Nothing Worsens with: Nothing Associated Symptoms: Fever, Other - Related Data Previous Rx's Medication Instructions Recorded Clindamycin HCl 300 mg PO QID #40 capsule 02/24/18 Hydrocodone/Acetaminophen [[place]lee 1 each PO Q6HR #7 tablet 02/24/18 5-325 Tablet] Levofloxacin [Levaquin] 750 mg PO DAILY #10 tab 03/01/18 Allergies Allergy/AdvReac Type Severity Reaction Status Date / Time cyclobenzaprine Allergy BEHAVIORAL Verified 03/01/18 18:44 [From Flexeril] CHANGES Penicillins Allergy HIVES Verified 03/01/18 18:44 Sulfa (Sulfonamide Allergy SWELLING Verified 03/01/18 18:44 Antibiotics) OF THE FACE Travel Screening - Travel/Exposure Within Last 30 Days Have you traveled within the last 30 days?: No Review of Systems Reviewed: No additional complaints except as noted below Constitutional: Reports: As per HPI. Denies: Chills, Fever, Malaise, Night sweats, Weakness, Weight change Eyes: Reports: As per HPI. Denies: Eye discharge, Eye pain, Photophobia, Vision change ENT: Reports: As per HPI. Denies: Congestion, Dental pain, Ear pain, Epistaxis , Hearing loss, Throat pain Respiratory: Reports: As per HPI. Denies: Cough, Dyspnea, Hemoptysis, Stridor, Wheezes Cardiovascular: Reports: As per HPI. Denies: Arrhythmia, Chest pain, Dyspnea on exertion, Edema, Murmurs, Orthopnea, Palpitations, Paroxysmal nocturnal dyspnea, Rheumatic Fever, Syncope Endocrine: Reports: As per HPI. Denies: Fatigue, Heat or cold intolerance, Polydipsia, Polyuria Gastrointestinal: Reports: As per HPI. Denies: Abdominal pain, Constipation, Diarrhea, Hematemesis, Hematochezia, Melena, Nausea, Vomiting Genitourinary: Reports: As per HPI. Denies: Dysuria, Frequency, Hematuria, Incontinence, Retention, Testicular pain, Testicular mass, Urgency Musculoskeletal: Reports: As per HPI. Denies: Arthralgia, Back pain, Gout, Joint swelling, Myalgia, Neck pain Skin: Reports: As per HPI. Denies: Bruising, Change in color, Change in hair/ nails, Lesions, Pruritus, Rash Neurological: Reports: As per HPI. Denies: Abnormal gait, Confusion, Headache, Numbness, Paresthesias, Seizure, Tingling, Tremors, Vertigo, Weakness Psychiatric: Reports: As per HPI. Denies: Anxiety, Auditory hallucinations, Depression, Homicidal thoughts, Suicidal thoughts, Visual hallucinations Hematological/Lymphatic: Reports: As per HPI. Denies: Anemia, Blood Clots, Easy bleeding, Easy bruising, Swollen glands Past Medical History - SOCIAL HISTORY Smoking Status: Never smoker Alcohol Use: None Drug Use: None - RESPIRATORY Hx Respiratory Disorders: Yes Hx Bronchitis: Yes Hx Sleep Apnea: Yes (being tested) - CARDIOVASCULAR Hx Cardio Disorders: No - NEURO Hx Neuro Disorders: No - GI Hx GI Disorders: No - Hx Genitourinary Disorders: No - ENDOCRINE Hx Diabetes: No Hx Thyroid Disease: No - MUSCULOSKELETAL Hx Musculoskeletal Disorders: Yes - PSYCH Hx Psych Problems: Yes Hx Anxiety: Yes Hx Depression: Yes - HEMATOLOGY/ONCOLOGY Hx Hematology/Oncology Disorders: No Family Medical History Any Significant Family History?: Yes Hx HTN: Father, Mother, Brother/Sister, Grandparents Physical Exam - General General Appearance: Alert, Oriented x3, Cooperative, Mild distress - Head Head exam: Normal inspection - Eye Eye exam: Normal appearance, PERRL, EOMI Pupils: Normal accommodation - ENT ENT exam: Normal exam, Mucous membranes moist, Normal external ear exam, Normal orophraynx Ear exam: Normal external inspection. negative: External canal tenderness Nasal Exam: Normal inspection. negative: Discharge, Sinus tenderness Mouth exam: Normal external inspection, Tongue normal Teeth exam: Normal inspection. negative: Dental caries Throat exam: Normal inspection. negative: Tonsillar erythema, Tonsillar exudate - Neck Neck exam: Normal inspection, Full ROM. negative: Tenderness - Respiratory Respiratory exam: Normal lung sounds bilaterally. negative: Respiratory distress - Cardiovascular Cardiovascular Exam: Regular rate, Normal rhythm, Normal heart sounds - GI/Abdominal GI/Abdominal exam: Soft, Normal bowel sounds. negative: Tenderness - Rectal Rectal exam: Deferred - exam: Deferred - Extremities Extremities exam: Normal inspection, Full ROM, Normal capillary refill. negative: Tenderness Image of Full Body: 1 - erythema, swelling, tenderness - Back Back exam: Reports: Normal inspection, Full ROM. Denies: Muscle spasm, Rash noted, Tenderness - Neurological Neurological exam: Alert, CN II-XII intact, Normal gait, Oriented X3 - Psychiatric Psychiatric exam: Normal affect, Normal mood - Skin Skin exam: Dry, Erythema, Intact, Normal color, Rash, Warm Type of lesion: Rash Description of rash: Erythematous, Swelling, Tenderness Course Vital Signs 03/01/18 18:40 Temperature 99.1 F Pulse Rate 85 Respiratory 20 Rate Blood Pressure 133/75 Pulse Ox 98 - Reevaluation(s) Reevaluation #1: 03/01/18 20:03 pt was told he needed to be admitted because of rapidly progressive cellulitis. pt at first was receptive at first and then got a call that his grandson was taken [facility] ambulance and he stated he must leave. he was advised of the risks including worsening infection and . he was told he may return at any time Medical Decision Making - Lab Data Result diagrams: 03/01/18 18:55 03/01/18 18:55 Disposition Disposition: Other Clinical Impression: Cellulitis Qualifiers: Site of cellulitis: extremity Site of cellulitis of extremity: lower extremity Laterality: left Qualified Code(s): L03.116 - Cellulitis of left lower limb Disposition: Against Medical Advice Condition: (1) Good Instructions: Cellulitis (ED) Additional Instructions: may return at any time. elevate leg Prescriptions: Levofloxacin [Levaquin] 750 mg PO DAILY #10 tab Forms: Patient Portal Access Quality - Quality Measures Quality Measures: N/A - Blood Pressure Screening Does Patient Have Any of the Following: No Blood Pressure Classification: Pre-Hypertensive BP Reading Systolic Measurement: 133 Diastolic Measurement: 75 Screening for High Blood Pressure: < Pre-Hypertensive BP, F/U Documented > [ G8950] Pre-Hypertensive Follow-up Interventions: Follow-up with rescreen every year.
== END 2018-03-01 20:59 | disposition left against medical advice (07) ==
LOC: ER 18:34
DX: L03.116 Cellulitis of left lower limb (principal)
CPT/HCPCS: 99284 ×2; 96365; 85025; 80048; J1956

== ENCOUNTER 2018-10-13 19:28 | Emergency (ER) | payer MEDICAID ==
[2018-10-13] MEDS ORDERED: KETOROLAC 30 MG/ML VIAL IVP ONE (19:50)
--- NOTE | 2018-10-13 19:53 | Emergency Department Record ---
History of Present Illness - General Chief complaint: Flu Like Symptoms Stated complaint: HEAD ACHE/SWEATS/ HIGH BLOOD PRESSURE Time Seen by Provider: 10/13/18 19:29 Source: Patient Mode of Arrival: Ambulatory Limitations: No limitations - History of Present Illness Initial comments: 48 yo male presents to ED for evaluation of "feeling achy all over, headache, weak, and elevated blood pressure" earlier today. Patient reports that he thought his blood sugar was low, was 132, ate several things with mild improvement. Patient denies fever, chills, neck stiffness, or productive cough symptoms. MD Complaint: Generalized weakness Onset/Timin -: Days(s) Location: Generalized Severity: Mild Severity scale (1-10): 7 Quality: Aching Consistency: Constant Improves with: None Worsens with: None Associated Symptoms: Fever/chills, Headaches - [place] Coma Scale Eye Response: (4) Open spontaneously Motor Response: (6) Obeys commands Verbal Response: (5) Oriented [place] Total: 15 - Symptoms of Stroke Baseline State: Baseline State - Related Data Home Medications Medication Instructions Recorded Confirmed Last Taken No Home Med [NO HOME MEDS] 10/13/18 10/13/18 Unknown Allergies Allergy/AdvReac Type Severity Reaction Status Date / Time cyclobenzaprine Allergy BEHAVIORAL Verified 10/13/18 19:34 [From Flexeril] CHANGES Penicillins Allergy HIVES Verified 10/13/18 19:34 Sulfa (Sulfonamide Allergy SWELLING Verified 10/13/18 19:34 Antibiotics) OF THE FACE Travel Screening - Travel/Exposure Within Last 30 Days Have you traveled within the last 30 days?: No - Travel/Exposure Within Last Year Have you traveled outside the [place] in the last year?: No - Additonal Travel Details Have you been exposed to anyone with a communicable illness?: No - Travel Symptoms Symptom Screening: None Review of Systems Constitutional: Denies: Chills, Fever, Malaise, Night sweats Eyes: Denies: Eye discharge, Eye pain ENT: Denies: Congestion, Ear pain, Epistaxis Respiratory: Denies: Cough, Dyspnea Cardiovascular: Denies: Chest pain, Dyspnea on exertion Endocrine: Denies: Fatigue, Heat or cold intolerance Gastrointestinal: Denies: Abdominal pain, Nausea, Vomiting Genitourinary: Denies: Incontinence, Retention Musculoskeletal: Reports: Myalgia. Denies: Arthralgia, Back pain, Joint swelling Skin: Denies: Bruising, Change in color Neurological: Reports: Headache. Denies: Abnormal gait, Confusion, Seizure Psychiatric: Denies: Anxiety Hematological/Lymphatic: Denies: Anemia, Blood Clots Past Medical History - SOCIAL HISTORY Smoking Status: Never smoker Alcohol Use: Rare Drug Use: None - RESPIRATORY Hx Respiratory Disorders: Yes Hx Bronchitis: Yes - CARDIOVASCULAR Hx Cardio Disorders: No - NEURO Hx Neuro Disorders: No - GI Hx GI Disorders: No - Hx Genitourinary Disorders: No - ENDOCRINE Hx Endocrine Disorders: No Hx Diabetes: No Hx Thyroid Disease: No - MUSCULOSKELETAL Hx Musculoskeletal Disorders: Yes - PSYCH Hx Psych Problems: Yes Hx Anxiety: Yes Hx Depression: Yes - HEMATOLOGY/ONCOLOGY Hx Hematology/Oncology Disorders: No Family Medical History Any Significant Family History?: No Hx HTN: Father, Mother, Brother/Sister, Grandparents Physical Exam - General General Appearance: Alert, Oriented x3, Cooperative, No acute distress Limitations: No limitations - Head Head exam: Atraumatic, Normocephalic, Normal inspection Head exam detail: negative: Abrasion, Contusion, Beaulieu's sign, General tenderness, Hematoma, Laceration - Eye Eye exam: Normal appearance. negative: Conjunctival injection, Periorbital swelling, Periorbital tenderness, Scleral icterus - ENT Ear exam: negative: Auricular hematoma, Auricular trauma Nasal Exam: negative: Active bleeding, Discharge, Dried blood, Foreign body Mouth exam: negative: Drooling, Laceration, Muffled voice, Tongue elevation - Neck Neck exam: Normal inspection. negative: Meningismus, Tenderness - Respiratory Respiratory exam: Normal lung sounds bilaterally. negative: Rales, Respiratory distress, Rhonchi, Stridor - Cardiovascular Cardiovascular Exam: Regular rate, Normal rhythm, Normal heart sounds - GI/Abdominal GI/Abdominal exam: Soft. negative: Rebound, Rigid, Tenderness - Rectal Rectal exam: Deferred - exam: Deferred - Extremities Extremities exam: Normal inspection. negative: Pedal edema, Tenderness - Back Back exam: Denies: CVA tenderness (R), CVA tenderness (L) - Neurological Neurological exam: Alert, Normal gait, Oriented X3 - Psychiatric Psychiatric exam: Normal affect, Normal mood - Skin Skin exam: Normal color. negative: Abrasion Type of lesion: negative: abrasion Course Vital Signs 10/13/18 19:34 Temperature 98.3 F Pulse Rate [ 83 Pulse Ox Probe] Respiratory 20 Rate Blood Pressure 152/91 [Left Arm] Pulse Ox 98 - Reevaluation(s) Reevaluation #1: 10/13/18 20:30 Laboratory studies were reviewed and are grossly unremarkable for an acute process. Reevaluation #2: 10/13/18 20:32 Patient was updated on all results, reports that his headache symptoms are improved to 2/10. Patient appears stable for discharge at this time. Medical Decision Making - Lab Data Result diagrams: 10/13/18 20:00 10/13/18 20:00 Disposition Disposition: Discharge Clinical Impression: Headache Qualifiers: Headache type: unspecified Headache chronicity pattern: acute headache Intractability: not intractable Qualified Code(s): R51 - Headache Disposition: Home, Self-Care Condition: (2) Stable Instructions: Acute Headache (ED) Additional Instructions: Return to ED if your symptoms worsen or if you have any concerns. Follow-up with your family doctor in 3-5 days as directed. Forms: Patient Portal Access Time of Disposition: 20:34 Quality - Quality Measures Quality Measures: N/A - Blood Pressure Screening Does Patient Have Any of the Following: Active Dx of HTN Blood Pressure Classification: Hypertensive Reading Systolic Measurement: 152 Diastolic Measurement: 91 Screening for High Blood Pressure: Patient Exclusion, Hx of HTN [G9744]
[2018-10-13 19:55] LABS: INFLUENZA A NEGATIVE (NEGATIVE); INFLUENZA B NEGATIVE (NEGATIVE)
[2018-10-13] MEDS ORDERED: 0.9 % SODIUM CHLORIDE 1000ML 500 ML IV SCH (20:00)
[2018-10-13 20:10] LABS: BASO % 0.4 % (0-6); EOS % 1.6 % (0-6); HEMATOCRIT 45.9 % (42.0-52.0); HEMOGLOBIN 15.9 gm/dl (14.0-18.0); LYMPH % 24.1 % (16-45); MEAN CELL VOLUME 85.3 fl (81-97); MEAN CORPUSCULAR HEMOGLOBIN 29.6 pg (27-33); MEAN CORPUSCULAR HGB CONC 34.6 g/dl (32-36); MONO % 8.9 % (0-9); PLATELET COUNT 225 K/uL (130-400); RED BLOOD COUNT 5.38 M/uL (4.40-5.70); RED CELL DISTRIBUTION WIDTH 13.4 % (11.5-14.5); WHITE BLOOD COUNT W/O DIFF 7.9 K/uL (4.2-12.2)
[2018-10-13 20:23] LABS: BLOOD UREA NITROGEN 12 mg/dL (6-20); CREATININE 0.6 mg/dL (0.7-1.2); EST GLOMERULAR FILTRATION RATE > 60 mL/min; TOTAL PROTEIN 7.4 g/dL (6.6-8.7)
[2018-10-13 20:25] LABS: GLUCOSE,RANDOM 141 mg/dL (74-109)
[2018-10-13 20:28] LABS: ALB/GLOB RATIO 1.3 (1.1-1.8); ALBUMIN 4.2 g/dL (4.0-5.0); ALKALINE PHOSPHATASE 65 U/L (40-129); ALT/SGPT 28 U/L (<41); AST/SGOT 18 U/L (10.0-50.0)
== END 2018-10-13 20:38 | disposition home or self-care (01) ==
LOC: ER 19:28
DX: R51 Headache (principal); R53.1 Weakness; I10 Essential (primary) hypertension
CPT/HCPCS: 99284 ×2; 96374; 85025; 80053; 87400; J1885; J7030

== ENCOUNTER 2019-01-04 12:36 | Emergency (ER) | payer MEDICAID ==
--- NOTE | 2019-01-04 13:28 | Emergency Department Record ---
History of Present Illness - General Chief complaint: Cold Stated complaint: COLD, SORE THROAT Time Seen by Provider: 01/04/19 13:16 Source: Patient Mode of Arrival: Ambulatory Limitations: No limitations - History of Present Illness Initial comments: pt has pressure in face w yellow rhinitis and sour throat and cough. MD complaint: Difficulty swallowing, Sore throat Onset/Timin -: Days(s) Location: Throat Severity: Moderate Severity scale (1-10): 7 Quality: Burning Consistency: Constant Improves with: None Worsens with: None Associated Symptoms: Cough, Rhinorrhea, Sore throat - Related Data Previous Rx's Medication Instructions Recorded Azithromycin [Zithromax] 250 mg PO DAILY #6 tab 01/04/19 Allergies Allergy/AdvReac Type Severity Reaction Status Date / Time cyclobenzaprine Allergy BEHAVIORAL Verified 10/13/18 19:34 [From Flexeril] CHANGES Penicillins Allergy HIVES Verified 10/13/18 19:34 Sulfa (Sulfonamide Allergy SWELLING Verified 10/13/18 19:34 Antibiotics) OF THE FACE Travel Screening - Travel/Exposure Within Last 30 Days Have you traveled within the last 30 days?: No Review of Systems Reviewed: No additional complaints except as noted below Constitutional: Reports: As per HPI. Denies: Chills, Fever, Malaise, Night s weats, Weakness, Weight change Eyes: Reports: As per HPI. Denies: Eye discharge, Eye pain, Photophobia, Vision change ENT: Reports: As per HPI, Congestion, Throat pain. Denies: Dental pain, Ear pain, Epistaxis, Hearing loss Respiratory: Reports: As per HPI, Cough. Denies: Dyspnea, Hemoptysis, Stridor, Wheezes Cardiovascular: Reports: As per HPI. Denies: Arrhythmia, Chest pain, Dyspnea on exertion, Edema, Murmurs, Orthopnea, Palpitations, Paroxysmal nocturnal dyspnea, Rheumatic Fever, Syncope Endocrine: Reports: As per HPI. Denies: Fatigue, Heat or cold intolerance, Polydipsia, Polyuria Gastrointestinal: Reports: As per HPI. Denies: Abdominal pain, Constipation, Diarrhea, Hematemesis, Hematochezia, Melena, Nausea, Vomiting Genitourinary: Reports: As per HPI. Denies: Dysuria, Frequency, Hematuria, Incontinence, Retention, Testicular pain, Testicular mass, Urgency Musculoskeletal: Reports: As per HPI. Denies: Arthralgia, Back pain, Gout, Joint swelling, Myalgia, Neck pain Skin: Reports: As per HPI. Denies: Bruising, Change in color, Change in hair/nails, Lesions, Pruritus, Rash Neurological: Reports: As per HPI. Denies: Abnormal gait, Confusion, Headache, Numbness, Paresthesias, Seizure, Tingling, Tremors, Vertigo, Weakness Psychiatric: Reports: As per HPI. Denies: Anxiety, Auditory hallucinations, Depression, Homicidal thoughts, Suicidal thoughts, Visual hallucinations Hematological/Lymphatic: Reports: As per HPI. Denies: Anemia, Blood Clots, Easy bleeding, Easy bruising, Swollen glands Past Medical History - SOCIAL HISTORY Smoking Status: Never smoker - RESPIRATORY Hx Respiratory Disorders: Yes Hx Bronchitis: Yes - CARDIOVASCULAR Hx Cardio Disorders: No - NEURO Hx Neuro Disorders: No - GI Hx GI Disorders: No - Hx Genitourinary Disorders: No - ENDOCRINE Hx Endocrine Disorders: No Hx Diabetes: No Hx Thyroid Disease: No - MUSCULOSKELETAL Hx Musculoskeletal Disorders: Yes - PSYCH Hx Psych Problems: Yes Hx Anxiety: Yes Hx Depression: Yes - HEMATOLOGY/ONCOLOGY Hx Hematology/Oncology Disorders: No Family Medical History Any Significant Family History?: Yes Hx HTN: Father, Mother, Brother/Sister, Grandparents Physical Exam - General General Appearance: Alert, Oriented x3, Cooperative, Mild distress - Head Head exam: Normal inspection - Eye Eye exam: Normal appearance, PERRL, EOMI Pupils: Normal accommodation - ENT ENT exam: Normal exam, Mucous membranes moist, Normal external ear exam, Normal orophraynx Ear exam: Normal external inspection. negative: External canal tenderness Nasal Exam: Normal inspection, Sinus tenderness. negative: Discharge Mouth exam: Normal external inspection, Tongue normal Teeth exam: Normal inspection. negative: Dental caries Throat exam: Tonsillar erythema. negative: Tonsillar exudate - Neck Neck exam: Normal inspection, Full ROM. negative: Tenderness - Respiratory Respiratory exam: Normal lung sounds bilaterally. negative: Respiratory distress - Cardiovascular Cardiovascular Exam: Regular rate, Normal rhythm, Normal heart sounds - GI/Abdominal GI/Abdominal exam: Soft, Normal bowel sounds. negative: Tenderness - Rectal Rectal exam: Deferred - exam: Deferred - Extremities Extremities exam: Normal inspection, Full ROM, Normal capillary refill. negative: Tenderness - Back Back exam: Reports: Normal inspection, Full ROM. Denies: Muscle spasm, Rash noted, Tenderness - Neurological Neurological exam: Alert, CN II-XII intact, Normal gait, Oriented X3 - Psychiatric Psychiatric exam: Normal affect, Normal mood - Skin Skin exam: Dry, Intact, Normal color, Warm Course Vital Signs 01/04/19 12:49 Temperature 99.6 F Pulse Rate 93 H Respiratory 18 Rate Blood Pressure 146/97 Pulse Ox 97 Disposition Disposition: Discharge Clinical Impression: Sinusitis Qualifiers: Sinusitis location: maxillary Chronicity: acute Recurrence: non-recurrent Qualified Code(s): J01.00 - Acute maxillary sinusitis, unspecified Disposition: Home, Self-Care Condition: (1) Good Instructions: Sinusitis (ED) Additional Instructions: follow up with family doctor. return sooner if worse. moist heat to face. Prescriptions: Azithromycin [Zithromax] 250 mg PO DAILY #6 tab Quality - Quality Measures Quality Measures: N/A - Blood Pressure Screening Does Patient Have Any of the Following: No Blood Pressure Classification: Hypertensive Reading Systolic Measurement: 146 Diastolic Measurement: 97 Screening for High Blood Pressure: < First Hypertensive BP, F/U Documented > [G8950] First Hypertensive Follow-up Interventions: Follow-up with rescreen GT 1 day and LT 4 weeks.
== END 2019-01-04 13:40 | disposition home or self-care (01) ==
LOC: ER 12:36
DX: J01.00 Acute maxillary sinusitis, unspecified (principal); J02.9 Acute pharyngitis, unspecified; R05 Cough
CPT/HCPCS: 99282

== ENCOUNTER 2019-03-08 17:47 | Emergency (ER) | payer MEDICAID ==
--- NOTE | 2019-03-08 18:55 | Emergency Department Record ---
History of Present Illness - General Chief complaint: Extremity Problem Stated complaint: LT LEG PAIN Time Seen by Provider: 03/08/19 18:48 Source: Patient Mode of Arrival: Ambulatory Limitations: No limitations - History of Present Illness Initial comments: 48 yo male presents to ED for evaluation of left knee pain that radiates down the left lower extremity that has been present for approximately 1 month. Patient denies specific injury, but does report that his pain symptoms worsen with inversion of the ankle. Patient reports a history of lower extremity cellulitis previously, denies history of DVT. Patient denies redness, fevers, or recent illness. Patient reports that his pain symptoms worsened today prompting visit to the ED. MD Complaint: Extremity pain Onset/Timin -: Month(s) Location: Left, Knee History of Same: No Radiation: None Consistency: Constant Improves with: Nothing Worsens with: Nothing Associated Symptoms: Denies other symptoms - Related Data Previous Rx's Medication Instructions Recorded Naproxen [Naprosyn] 500 mg PO Q12H PRN #30 tab. 03/08/19 Allergies Allergy/AdvReac Type Severity Reaction Status Date / Time cyclobenzaprine Allergy BEHAVIORAL Verified 10/13/18 19:34 [From Flexeril] CHANGES Penicillins Allergy HIVES Verified 10/13/18 19:34 Sulfa (Sulfonamide Allergy SWELLING Verified 10/13/18 19:34 Antibiotics) OF THE FACE Travel Screening - Travel/Exposure Within Last 30 Days Have you traveled within the last 30 days?: No Review of Systems Constitutional: Denies: Chills, Fever, Malaise, Night sweats Eyes: Denies: Eye discharge, Eye pain ENT: Denies: Congestion, Ear pain, Epistaxis Respiratory: Denies: Cough, Dyspnea Cardiovascular: Denies: Chest pain, Dyspnea on exertion Endocrine: Denies: Fatigue, Heat or cold intolerance Gastrointestinal: Denies: Abdominal pain, Nausea, Vomiting Genitourinary: Denies: Incontinence, Retention Musculoskeletal: Reports: Myalgia. Denies: Arthralgia, Back pain Skin: Denies: Bruising, Change in color Neurological: Denies: Abnormal gait, Confusion, Tingling, Tremors Psychiatric: Denies: Anxiety Hematological/Lymphatic: Denies: Anemia, Blood Clots Past Medical History - SOCIAL HISTORY Smoking Status: Never smoker - RESPIRATORY Hx Respiratory Disorders: Yes Hx Bronchitis: Yes - CARDIOVASCULAR Hx Cardio Disorders: No - NEURO Hx Neuro Disorders: No - GI Hx GI Disorders: No - Hx Genitourinary Disorders: No - ENDOCRINE Hx Endocrine Disorders: No Hx Diabetes: No Hx Thyroid Disease: No - MUSCULOSKELETAL Hx Musculoskeletal Disorders: Yes - PSYCH Hx Psych Problems: Yes Hx Anxiety: Yes Hx Depression: Yes - HEMATOLOGY/ONCOLOGY Hx Hematology/Oncology Disorders: No Family Medical History Any Significant Family History?: Yes Hx HTN: Father, Mother, Brother/Sister, Grandparents Physical Exam - General General Appearance: Alert, Oriented x3, Cooperative, Mild distress Limitations: No limitations - Head Head exam: Atraumatic, Normocephalic, Normal inspection Head exam detail: negative: Abrasion, Contusion, Beaulieu's sign, General tende rness, Hematoma, Laceration - Eye Eye exam: Normal appearance. negative: Conjunctival injection, Periorbital swelling, Periorbital tenderness, Scleral icterus - ENT Ear exam: negative: Auricular hematoma, Auricular trauma Nasal Exam: negative: Active bleeding, Discharge, Dried blood, Foreign body Mouth exam: negative: Drooling, Laceration, Muffled voice, Tongue elevation - Neck Neck exam: Normal inspection. negative: Meningismus, Tenderness - Respiratory Respiratory exam: Normal lung sounds bilaterally. negative: Respiratory distress, Rhonchi, Stridor, Wheezes - Cardiovascular Cardiovascular Exam: Regular rate, Normal rhythm, Normal heart sounds Peripheral Pulses: 3+: Dorsalis Pedis (L) (Normal DPP on examination) - GI/Abdominal GI/Abdominal exam: Soft. negative: Distended, Rebound, Rigid, Tenderness - Rectal Rectal exam: Deferred - exam: Deferred - Extremities Extremities exam: Tenderness, Other (TTP to the medial/lateral aspects of the left knee, no effusion present, no ertyhema, no evidence for septic joint is present on examination. Patient has pain with palpation of the popliteal region as well. Strong DPP present on examination.). negative: Joint swelling, Pedal edema - Back Back exam: Denies: CVA tenderness (R), CVA tenderness (L) - Neurological Neurological exam: Alert, Oriented X3 - Psychiatric Psychiatric exam: Normal affect, Normal mood - Skin Skin exam: Normal color. negative: Abrasion Type of lesion: negative: abrasion Course Vital Signs 03/08/19 18:45 Temperature 98.0 F Pulse Rate 86 Respiratory 20 Rate Blood Pressure 134/92 Pulse Ox 98 - Reevaluation(s) Reevaluation #1: 03/08/19 18:53 Patient was seen and examined. Denies history of DVT, specific injury. Will obtain radiographs of the left knee, obtain D-Dimer for evaluation of possible DVT as doppler is not available at this time. Patient is in agreement with the plan of care as discussed. Reevaluation #2: 03/08/19 19:26 Laboratory studies were reviewed and appear grossly unremarkable for an acute process. D-dimer is negative for DVT. Reevaluation #3: 03/08/19 19:32 Left Knee: 12 mm loose body posterior aspect knee Moderate DJD Left lower extremity: No acute process Patient was updated on all results, will place in knee immobilizer with instructions to follow-up with Dr. Wilks next week in the [facility] for further evaluation. Patient appears stable for discharge at this time. Medical Decision Making - Lab Data Result diagrams: 03/08/19 18:52 03/08/19 18:52 Disposition Disposition: Discharge Clinical Impression: Lateral collateral ligament sprain of knee Qualifiers: Encounter type: initial encounter Laterality: left Qualified Code(s): S83.422A - Sprain of lateral collateral ligament of left knee, initial encounter Disposition: Home, Self-Care Condition: (2) Stable Instructions: Knee Pain (ED) Additional Instructions: Return to ED if your symptoms worsen or if you have any concerns. Naprosyn as directed. Knee immobilizer as directed. Follow-up with Dr. Wilks next week in the [facility] for further evaluation of your knee pain symptoms. Prescriptions: Naproxen [Naprosyn] 500 mg PO Q12H PRN #30 tab. PRN Reason: Pain - Mod To Severe (5-10) Referrals: Johnny Wilks [DOCTOR OF OSTEOPATH] - [facility] [Provider Group] Forms: Patient Portal Access Time of Disposition: 19:57 Quality - Quality Measures Quality Measures: N/A - Blood Pressure Screening Does Patient Have Any of the Following: No Blood Pressure Classification: Hypertensive Reading Systolic Measurement: 134 Diastolic Measurement: 92 Screening for High Blood Pressure: < First Hypertensive BP, F/U Documented > [G8950] First Hypertensive Follow-up Interventions: Referral to alternative/primary care provider.
[2019-03-08 19:04] LABS: ABSOLUTE NEUTROPHIL COUNT 4.86; BASO % 0.3 % (0-6); EOS % 2.8 % (0-6); GRAN % 56.1 % (47-80); HEMATOCRIT 45.5 % (42.0-52.0); HEMOGLOBIN 15.7 gm/dl (14.0-18.0); LYMPH % 31.1 % (16-45); MEAN CELL VOLUME 85.8 fl (81-97); MEAN CORPUSCULAR HEMOGLOBIN 29.6 pg (27-33); MEAN CORPUSCULAR HGB CONC 34.5 g/dl (32-36); MEAN PLATELET VOLUME 8.7 fl (7.4-10.4); MONO % 9.7 % (0-9); PLATELET COUNT 231 K/uL (130-400); RED CELL DISTRIBUTION WIDTH 13.6 % (11.5-14.5); WHITE BLOOD COUNT W/O DIFF 8.7 K/uL (4.2-12.2)
[2019-03-08 19:18] LABS: BLOOD UREA NITROGEN 14 mg/dL (6-20); CREATININE 0.7 mg/dL (0.7-1.2); EST GLOMERULAR FILTRATION RATE > 60 mL/min
[2019-03-08 19:21] LABS: GLUCOSE,RANDOM 95 mg/dL (74-109)
--- NOTE | 2019-03-10 20:05 | RADIOLOGY REPORT ---
EXAM: KNEE, LEFT 4 VIEWS HISTORY: LEFT KNEE PAIN MEDIALLY, NO KNOWN INJURY. TECHNIQUE: Four views, left knee. COMPARISON: No prior left knee series. FINDINGS: There is mild degenerative arthritis in the left knee. There may be an osteocartilaginous loose body along the posterior aspect of the knee joint as well measuring about 12 mm in size, centrally along the posterior aspect of the left knee. No definite joint effusion is seen and the remainder of the left knee appears essentially negative. IMPRESSION: 1. MODERATE DEGENERATIVE ARTHRITIS, LEFT KNEE. 2. POSSIBLE 12 MM OSTEOCARTILAGINOUS LOOSE BODY POSTERIORLY IN THE CENTRAL PORTION OF THE KNEE. JOB NUMBER: [id number] [facility]
--- NOTE | 2019-03-10 20:08 | RADIOLOGY REPORT ---
EXAM: LOWER LEG, LEFT HISTORY: LEFT LOWER LEG PAIN MEDIALLY, NO KNOWN INJURY. TECHNIQUE: AP and lateral views, left lower leg. COMPARISON: No prior left lower leg series with which to compare. FINDINGS: Upper most aspect of the tibia and fibula are not included on these views but are included on the left knee series from today. The visualized left tibia and fibula appear essentially negatively on the lower leg series. No definite bony or adjacent soft tissue abnormality identified. Posterior calcaneal spurs incidentally noted at the heel. IMPRESSION: LEFT LOWER LEG APPEARS ESSENTIALLY NEGATIVE. POSTERIOR CALCANEAL SPURS INCIDENTALLY NOTED. JOB NUMBER: [id number] [facility]
== END 2019-03-08 20:33 | disposition home or self-care (01) ==
LOC: ER 17:47
DX: S83.422A Sprain of lateral collateral ligament of left knee, initial encounter (principal); M25.562 Pain in left knee; X58.XXXA Exposure to other specified factors, initial encounter
CPT/HCPCS: 80048; 85025; 85379; 99283; 99284

== ENCOUNTER 2019-04-26 13:36 | Emergency (ER) | payer MEDICAID ==
[2019-04-26] MEDS ORDERED: CLINDAMYCIN 600MG/50ML PREMIX 600 MG/50 ML BAG IVPB ONE (13:52)
--- NOTE | 2019-04-26 13:55 | Emergency Department Record ---
History of Present Illness - General Chief complaint: Extremity Problem Stated complaint: CELLULITIS Time Seen by Provider: 04/26/19 13:42 Source: Patient Mode of Arrival: Ambulatory Limitations: No limitations - History of Present Illness Initial comments: The patient is here due to L lower extremity pain and redness similar to when he had cellulitis in the past for one day. The patient has had similar issues in the past in the same leg multiple times. He did feel ill last evening with a fever and vomiting but that is better today. MD Complaint: Extremity pain Onset/Timin -: Days(s) Location: Left, Lower Leg Severity scale (1-10): 5 Quality: Other Consistency: Constant Improves with: Nothing Worsens with: Nothing - Related Data Previous Rx's Medication Instructions Recorded Clindamycin HCl [Cleocin HCl] 300 mg PO QID #28 capsule 04/26/19 Allergies Allergy/AdvReac Type Severity Reaction Status Date / Time cyclobenzaprine Allergy BEHAVIORAL Verified 04/26/19 13:45 [From Flexeril] CHANGES Penicillins Allergy HIVES Verified 04/26/19 13:45 Sulfa (Sulfonamide Allergy SWELLING Verified 04/26/19 13:45 Antibiotics) OF THE FACE Travel Screening - Travel/Exposure Within Last 30 Days Have you traveled within the last 30 days?: No - Travel/Exposure Within Last Year Have you traveled outside the [place] in the last year?: No - Additonal Travel Details Have you been exposed to anyone with a communicable illness?: No - Travel Symptoms Symptom Screening: None Review of Systems Constitutional: Reports: Fever, Malaise. Denies: Chills Eyes: Denies: Eye discharge ENT: Denies: Congestion Respiratory: Denies: Cough Cardiovascular: Denies: Arrhythmia Endocrine: Reports: Fatigue Gastrointestinal: Denies: Nausea Genitourinary: Denies: Dysuria Musculoskeletal: Denies: Arthralgia Skin: Denies: Bruising Past Medical History - SOCIAL HISTORY Smoking Status: Never smoker Alcohol Use: None Drug Use: None - RESPIRATORY Hx Respiratory Disorders: Yes Hx Bronchitis: Yes - CARDIOVASCULAR Hx Cardio Disorders: No - NEURO Hx Neuro Disorders: No - GI Hx GI Disorders: No - Hx Genitourinary Disorders: No - ENDOCRINE Hx Endocrine Disorders: No Hx Diabetes: No Hx Thyroid Disease: No - MUSCULOSKELETAL Hx Musculoskeletal Disorders: Yes - PSYCH Hx Psych Problems: Yes Hx Anxiety: Yes Hx Depression: Yes - HEMATOLOGY/ONCOLOGY Hx Hematology/Oncology Disorders: No Family Medical History Any Significant Family History?: No Hx HTN: Father, Mother, Brother/Sister, Grandparents Physical Exam - General General Appearance: Alert, Oriented x3, Cooperative, No acute distress - Head Head exam: Atraumatic, Normocephalic - Eye Eye exam: Normal appearance - Neck Neck exam: Normal inspection, Full ROM. negative: Tenderness - Respiratory Respiratory exam: Normal lung sounds bilaterally. negative: Respiratory distress - Cardiovascular Cardiovascular Exam: Regular rate, Normal rhythm, Normal heart sounds - Extremities Extremities exam: Full ROM, Tenderness. negative: Normal inspection (There is mild erythema and warmth to the medial L lower leg below the knee. There is mild tenderness present also.) - Neurological Neurological exam: Alert. negative: Motor sensory deficit Course Vital Signs 04/26/19 13:40 Temperature 99.1 F Pulse Rate 95 H Respiratory 18 Rate Blood Pressure 142/93 Pulse Ox 98 - Reevaluation(s) Reevaluation #1: The patient is doing better. His L leg pain is pretty much gone. I did discuss the plan for home and he is to continue the oral Abx's as directed. He also understands the need to return for any worsening symptoms. 04/26/19 14:51 Medical Decision Making - Data Complexity MDM Data: Labs Ordered and/or Reviewed - Lab Data Result diagrams: 04/26/19 13:59 04/26/19 13:59 Disposition Disposition: Discharge Clinical Impression: Cellulitis Qualifiers: Site of cellulitis: unspecified site Qualified Code(s): L03.90 - Cellulitis, unspecified Disposition: Home, Self-Care Condition: (2) Stable Instructions: Cellulitis (ED) Additional Instructions: Please continue the Clindamycin and use Tylenol and Motrin for pain. Elevate the L leg for 2 days when possible and use warm compresses when possible. Return to the ER for any worsening symptoms, pain, fever, or vomiting. Prescriptions: Clindamycin HCl [Cleocin HCl] 300 mg PO QID #28 capsule Forms: Patient Portal Access Time of Disposition: 14:50 Quality - Quality Measures Quality Measures: N/A - Blood Pressure Screening View Details: Yes Does Patient Have Any of the Following: No Blood Pressure Classification: Hypertensive Reading Systolic Measurement: 142 Diastolic Measurement: 93 Screening for High Blood Pressure: < First Hypertensive BP, F/U Documented > [G8950] First Hypertensive Follow-up Interventions: Referral to alternative/primary care provider.
[2019-04-26] MEDS ORDERED: ACETAMINOPHEN 325 MG TAB PO ONE (14:06)
[2019-04-26 14:09] LABS: ABSOLUTE NEUTROPHIL COUNT 12.68; HEMATOCRIT 43.6 % (42.0-52.0); HEMOGLOBIN 14.8 gm/dl (14.0-18.0); MEAN CORPUSCULAR HEMOGLOBIN 29.2 pg (27-33); MEAN CORPUSCULAR HGB CONC 33.9 g/dl (32-36); MEAN PLATELET VOLUME 8.9 fl (7.4-10.4); PLATELET COUNT 214 K/uL (130-400); RED BLOOD COUNT 5.07 M/uL (4.40-5.70); RED CELL DISTRIBUTION WIDTH 13.7 % (11.5-14.5); WHITE BLOOD COUNT W/O DIFF 14.9 K/uL (4.2-12.2)
[2019-04-26 14:39] LABS: BLOOD UREA NITROGEN 13 mg/dL (6-20); CREATININE 0.7 mg/dL (0.7-1.2); EST GLOMERULAR FILTRATION RATE > 60 mL/min; TOTAL PROTEIN 7.3 g/dL (6.6-8.7)
[2019-04-26 14:41] LABS: GLUCOSE,RANDOM 101 mg/dL (74-109)
[2019-04-26 14:44] LABS: ALB/GLOB RATIO 1.4 (1.1-1.8); ALBUMIN 4.3 g/dL (4.0-5.0); ALKALINE PHOSPHATASE 68 U/L (40-129); ALT/SGPT 23 U/L (<41); AST/SGOT 17 U/L (10.0-50.0); C-REACTIVE PROTEIN 5.96 mg/dL (<0.5)
== END 2019-04-26 14:58 | disposition home or self-care (01) ==
LOC: ER 13:36
DX: L03.116 Cellulitis of left lower limb (principal)
CPT/HCPCS: 80053; 85027; 86140; 96365; 99284